=== PATIENT | female | born 1940 | race Caucasian/White ===

== ENCOUNTER → 2023-03-24 15:10 | Outpatient (CLI) | payer MEDICARE, SELFPAY ==
--- NOTE | 2023-03-24 15:26 | DI.RAD_ITS ---
Exam(s) XR CHEST 2V PA LATERAL EXAM: XR CHEST 2V PA LATERAL CLINICAL HISTORY: COUGH, R05.9 TECHNIQUE: 2D digital imaging was performed. COMPARISON: No exams were available for comparison FINDINGS: Lateral view limited by poor pulmonary inflation. HEART: Normal size. Aorta: Not dilated. PULMONARY VASCULATURE: Normal. LUNGS: Clear. PLEURAL SPACE: No pleural effusion or pneumothorax. BONE:Unremarkable for age. Soft tissues: Moderate size hiatal hernia. Eventration of the right diaphragm. IMPRESSION: Hiatal hernia. No acute abnormality. DATA REPOSITORY: RADIATION DOSE DELIVERED:
== END ==
PROVIDERS: Visit Provider Physician Assistant
DX: J44.9 Chronic obstructive pulmonary disease, unspecified (principal); R05.9 Cough, unspecified
CPT/HCPCS: 71046

== ENCOUNTER 2023-09-14 05:57 | Outpatient (CLI) | payer MEDICARE, SELFPAY ==
[2023-09-14 13:49] LABS: Abs Immature Grans 0.01 10^3/uL (0.0-0.06); Absolute Basophil Count 0.04 10^3/uL (0.0-0.2); Absolute Eosinophil Count 0.42 10^3/uL (0.0-0.7); Absolute Lymphocyte Count 1.47 10^3/uL (1.2-3.4); Absolute Monocyte Count 0.47 10^3/uL (0.1-0.8); Absolute Neutrophil Count 2.72 10^3/uL (1.2-6.7); Basophils % 0.8 %; Eosinophils % 8.2 %; HCT 41.2 % (36.0-46.0); HGB 13.3 g/dL (11.2-15.7); Immature Grans % 0.2 %; Lymphocytes % 28.7 %; MCH 32.6 pg (27.0-33.0); MCHC 32.3 % (32.0-36.0); MCV 101 fL (80-95); MPV 8.9 fL (8.0-11.0); Monocytes % 9.2 %; Neutrophils % 52.9 %; Platelet Count 247 10^3/uL (130-400); RBC 4.08 10^6/uL (3.93-5.22); RDW 12.3 % (11.7-14.6); WBC 5.13 10^3/uL (4.4-10.8)
[2023-09-14 14:00] LABS: Hemoglobin A1C 6.1 % (<5.7)
[2023-09-14 14:52] LABS: ALT 28 U/L (14-59); AST 20 U/L (15-37); Albumin 3.7 g/dL (3.4-5.0); Alkaline Phosphatase 48 U/L (46-116); Anion Gap 5.8 mmol/L (3-11); BUN 16 mg/dL (7-18); Bilirubin, Total 0.4 mg/dL (0.2-1.0); CO2 31.2 mmol/L (21.0-32.0); CREATININE 0.8 mg/dL (0.55-1.02); Calcium 9.4 mg/dL (8.5-10.1); Calculated LDL 180 mg/dL (<100); Chloride 103 mmol/L (98-107); Cholesterol 271 mg/dL (<200); Estimated GFR 72.61 (mL/min/1.73m2); Glucose 95 mg/dL (74-106); HDL Cholesterol 52 mg/dL (40-60); Potassium 3.8 mmol/L (3.5-5.1); Sodium 140 mmol/L (136-145); Triglyceride 197 mg/dL (<150)
== END 2023-09-14 05:58 | disposition home or self-care (01) ==
LOC: LBO 05:57
PROVIDERS: PCP Nurse Practitioner; Referring Provider Nurse Practitioner; Visit Provider Nurse Practitioner
DX: E78.2 Mixed hyperlipidemia (principal); R73.03 Prediabetes; I10 Essential (primary) hypertension
CPT/HCPCS: 36415; 80053; 80061; 83036; 85025

== ENCOUNTER 2024-01-26 15:11 | Emergency (ER) | payer MEDICARE, SELFPAY ==
[2024-01-26] VITALS (19 sets, daily range): BP systolic 82–116; BP diastolic 35–85; PULSE 74–97; RESP 20; TEMP 37.9; O2SAT 84–95
--- NOTE | 2024-01-26 15:15 | DI.RAD_ITS ---
Exam(s) XR CHEST 2V PA LATERAL EXAM: XR CHEST 2V PA LATERAL CLINICAL HISTORY: cough. TECHNIQUE: 2D digital imaging was performed. COMPARISON: CR XR CHEST 2V PA LATERAL from 03/24/2023 FINDINGS: 2 views: Mild cardiomegaly. There is a large retrocardiac hiatal hernia again noted. Tenting of the right hemidiaphragm is unchanged. No obvious infiltrates nor pleural effusions. No pulmonary edema. No fractures. No pneumothorax. IMPRESSION: Large retrocardiac hiatal hernia again noted. This measures approximately 10 cm wide. No obvious [place] pulmonary findings nor pleural effusions DATA REPOSITORY: RADIATION DOSE DELIVERED:
--- NOTE | 2024-01-26 15:25 | W.ED.GENAD ---
Discharge Plan Disposition Patient Disposition: Home Condition: Stable Discharge Details Clinical Impression: COVID Primary Care Provider: Lyndsay Mujica ED Provider: Emeka Torres Home Meds and New Rx's Prescriptions: New amoxicillin-pot clavulanate 875-125 mg tablet 1 tab PO BID Qty: 20 0RF Paxlovid 300 mg (150 mg x 2)-100 mg tablets,dose pack See Rx Instructions .ROUTE .COMPLEX Qty: 30 0RF Rx Instructions: take TWO 150 mg tablets of nirmatrelvir with ONE 100 mg tablet of ritonavir twice daily for 5 days Continued triamcinolone acetonide 0.5 % cream 1 applic topical BID Pataday Once Daily Relief 0.7 % drops 1 drp ophthalmic (eye) QAM fluticasone propionate [Flonase Allergy Relief] 50 mcg/actuation spray,suspension 1 spray intranasal DAILY Rx Instructions: administer into each nostril atenolol 50 mg tablet 50 mg PO DAILY Qty: 90 3RF lisinopril 10 mg tablet 10 mg PO DAILY Qty: 90 3RF montelukast 10 mg tablet 10 mg PO DAILY Qty: 90 3RF omeprazole 40 mg capsule,delayed release(DR/EC) 40 mg PO DAILY Qty: 90 3RF benzonatate 200 mg capsule 200 mg PO BID PRN (Reason: cough) Qty: 90 1RF gabapentin 300 mg capsule 300 mg PO QHS Qty: 90 3RF ezetimibe 10 mg tablet 10 mg PO DAILY Qty: 90 3RF Discharge Instructions Additional Instructions: You are positive for COVID For guidance on quarantinining follow the recommendations on CDC website Follow-up with your primary care provider as needed If you feel more ill or have new symptoms such as severe worsening shortness of breath return to the emergency department for reevaluation HPI General Mode of arrival: EMS. Date/Time Provider Initiated Documentation: 01/26/24 15:15. Limitations to Documentation: no limitations. Information obtained by: patient. History of Present Illness 83 year old F presents to the emergency department with the chief complaint of productive cough, described as moderate, Patient started experiencing this day(s) (3) and it has been constant. No relieving factors improve symptom(s), No exacerbating factors reported . Patient did receive the following treatments prior to arrival, none Related Data Home Medications ?Medication ?Instructions ?Recorded ?Confirmed atenolol 50 mg tablet 50 mg PO DAILY #90 tabs 09/01/23 01/26/24 benzonatate 200 mg capsule 200 mg PO BID PRN cough #90 caps 09/01/23 01/26/24 fluticasone propionate 50 1 spray intranasal DAILY 09/01/23 01/26/24 mcg/actuation nasal spray,suspension (Flonase Allergy Relief) gabapentin 300 mg capsule 300 mg PO QHS #90 caps 09/01/23 01/26/24 lisinopril 10 mg tablet 10 mg PO DAILY #90 tabs 09/01/23 01/26/24 montelukast 10 mg tablet 10 mg PO DAILY #90 tabs 09/01/23 01/26/24 olopatadine 0.7 % eye drops 1 drp ophthalmic (eye) QAM 09/01/23 01/26/24 (Pataday Once Daily Relief) omeprazole 40 mg capsule,delayed 40 mg PO DAILY #90 caps 09/01/23 01/26/24 release triamcinolone acetonide 0.5 % 1 applic topical BID 09/01/23 01/26/24 topical cream ezetimibe 10 mg tablet 10 mg PO DAILY #90 tabs 10/07/23 01/26/24 amoxicillin 875 mg-potassium 1 tab PO BID #20 tabs 01/26/24 clavulanate 125 mg tablet nirmatrelvir 300 mg (150 mg See Rx Instructions PO .COMPLEX 01/26/24 x2)-ritonavir 100 mg tablet,dose #30 dose pk pack (Paxlovid) Previous Rx's ?Medication ?Instructions ?Recorded atenolol 50 mg tablet 50 mg PO DAILY #90 tabs 09/01/23 benzonatate 200 mg capsule 200 mg PO BID PRN cough #90 caps 09/01/23 gabapentin 300 mg capsule 300 mg PO QHS #90 caps 09/01/23 lisinopril 10 mg tablet 10 mg PO DAILY #90 tabs 09/01/23 montelukast 10 mg tablet 10 mg PO DAILY #90 tabs 09/01/23 omeprazole 40 mg capsule,delayed 40 mg PO DAILY #90 caps 09/01/23 release ezetimibe 10 mg tablet 10 mg PO DAILY #90 tabs 10/07/23 amoxicillin 875 mg-potassium 1 tab PO BID #20 tabs 01/26/24 clavulanate 125 mg tablet nirmatrelvir 300 mg (150 mg See Rx Instructions PO .COMPLEX 01/26/24 x2)-ritonavir 100 mg tablet,dose #30 dose pk pack (Paxlovid) General Stated Complaint: RespSymp TRICIA: 3 Review of Systems All systems reviewed & are unremarkable except as noted in HPI and below Constitutional Constitutional: Reports chills, Reports fever(s) and Denies weakness Cardiovascular Cardiovascular: Denies chest pain and Denies dyspnea Respiratory Respiratory: Reports cough and Denies dyspnea Gastrointestinal Gastrointestinal: Denies abdominal pain, Denies nausea and Denies vomiting Musculoskeletal Musculoskeletal: Denies joint swelling Neurologic Neurologic: Denies weakness Exam Const General: no acute distress Orientation: alert HENWY Head: normal to inspection Ears: external ears normal General nose exam: external nose normal Mouth: moist mucous membranes Eyes General: appearance normal, both eyes and all related structures Neck Neck: normal visual inspection Resp Effort & Inspection: normal respiratory effort and able to speak in complete sentences Auscultation: no wheezes Cardio Jugular venous pressure: no JVD Rate: regular rate Skin General skin exam: no rashes or lesions noted Neuro General: patient alert and patient oriented x3 Extrem General: normal to inspection Psych Mental Status: mental status grossly normal Course Vital Signs Vital signs: Vital Signs Temperature 37.9 C H 01/26/24 15:12 Pulse 95 H 01/26/24 15:12 Respiratory Rate 20 01/26/24 15:12 Blood Pressure 114/85 01/26/24 15:12 Pulse Oximetry 92 01/26/24 15:12 Temperature 37.9 C H 01/26/24 15:15 Temperature Source Oral 01/26/24 15:15 Pulse 95 H 01/26/24 15:15 Respiratory Rate 20 01/26/24 15:15 Respiratory Effort Normal 01/26/24 15:15 Blood Pressure 114/85 01/26/24 15:15 Blood Pressure Position Sitting 01/26/24 15:15 Pulse Oximetry 92 01/26/24 15:15 Oxygen Delivery Method Room Air 01/26/24 15:15 Oxygen Flow Rate 0 01/26/24 15:12 Medical Decision Making 83-year-old female with a history of hypertension, hyperlipidemia who comes in with several days of cough and low-grade fevers. She says she is also been feeling generally weak. Denies any vomiting, abdominal pain, severe headaches or neck stiffness. She arrives hemodynamically stable with a temperature of 37.9. She has no wheezing on exam, does have some mild rhonchi at the bases on the right and left. No murmurs, no JVD, soft nontender abdomen. Given her cough and low-grade fevers concern for pneumonia versus COVID versus flu, will check CBC, CMP, procalcitonin and also chest x-ray and reassess. X-ray negative for acute findings, labs show leukopenia, indeterminate procalcitonin and she is COVID-positive. She is hemodynamically stable and not requiring oxygen. She does note that she has had also a week of sinus congestion consistent with sinusitis. Unclear if this is due to the COVID because her cough symptoms only started a few days ago. I will start her on Paxlovid given her age and also Augmentin for sinusitis, she is stable for discharge and will follow-up with her PCP as needed, return precautions given Differential Diagnosis Differential Diagnosis: Pneumonia, flu, COVID Lab Data Lab results reviewed: Yes I reviewed the patient's lab results. Quality:SDOH Health Related Social Needs: No Data to Display PFSH All Active Problems (Updated 01/26/24 @ 16:54 by Emeka Torres MD) COVID (Acute) Statin intolerance (Acute) Prediabetes (Acute) Mixed hyperlipidemia (Acute) Primary hypertension (Acute) Medical History (Updated 01/26/24 @ 16:54 by Emeka Torres MD) Gastroesophageal reflux disease without esophagitis Seasonal allergic rhinitis due to pollen Trigeminal neuralgia History of deviated nasal septum Endometritis Surgical History (Updated 06/18/23 @ 15:07 by Nahed Canchola) History of tonsillectomy History of appendectomy History of partial hysterectomy Family History (Updated 06/18/23 @ 15:03 by Nahed Canchola) Father Heart attack Daughter Depression Social History (Updated 06/18/23 @ 15:02 by Nahed Canchola) Smoking/Tobacco Use Status: Former Tobacco Use Second Hand Exposure: No Smoking risk assessment performed?: Yes Alcohol Intake: never Substance use type: prescription drug Counseling given: No Adopted: No Caregiver/Support person: No Foster care: No Household members: family Housing: house Number of Children: 2 number of grandchildren: 8 Communication Needs: None Education Level: high school Do you need help understanding health information?: Never current occupation: Retired Pets and animals: Yes (1) Pets and animals: dog(s) Sexually active: No Do you think of yourself as: straight/heterosexual Current gender identity: female What is your relationship status?: How often do you talk on the phone with friends or family?: three or more times per week How often do you get together with friends or relatives?: three or more times per week Do you belong to any clubs or organized social groups?: no Panel score (0-1 are the most socially isolated patients): 1 What type of physical activity do you participate in: walking Duration: 60-90 minutes/day Frequency: daily Chantelle/Restorationism: Christian Seatbelt use: always Helmet use: No Drive intox or ride w/intox 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
[2024-01-26 15:53] LABS: BE (Venous) -1 mmol/L (-2-3); HCO3 (Venous) 23 mmol/L (23-28); O2 Sat (Venous) 87 %; TCO2 (Venous) 21 mmol/L (24-29); pCO2 (Venous) 37 mmHg (41-51); pH (Venous) 7.41 (7.31-7.41); pO2 (Venous) 55 mmHg
[2024-01-26 16:00] LABS: Abs Immature Grans 0.02 10^3/uL (0.0-0.06); Absolute Basophil Count 0.02 10^3/uL (0.0-0.2); Absolute Lymphocyte Count 0.23 10^3/uL (1.2-3.4); Absolute Monocyte Count 0.13 10^3/uL (0.1-0.8); Absolute Neutrophil Count 2.58 10^3/uL (1.2-6.7); Basophils % 0.7 %; HCT 34.5 % (36.0-46.0); HGB 11.6 g/dL (11.2-15.7); Immature Grans % 0.7 %; Lymphocytes % 7.7 %; MCH 32.6 pg (27.0-33.0); MCHC 33.6 % (32.0-36.0); MCV 97 fL (80-95); MPV 9.3 fL (8.0-11.0); Monocytes % 4.4 %; Neutrophils % 86.5 %; Platelet Count 138 10^3/uL (130-400); RBC 3.56 10^6/uL (3.93-5.22); RDW 12.1 % (11.7-14.6); RDW-SD 43.8 fL; WBC 2.98 10^3/uL (4.4-10.8)
[2024-01-26 16:22] LABS: ALT 44 U/L (14-59); AST 62 U/L (15-37); Albumin 2.9 g/dL (3.4-5.0); Alkaline Phosphatase 56 U/L (46-116); Anion Gap 7.4 mmol/L (3-11); BUN 20 mg/dL (7-18); Bilirubin, Total 0.47 mg/dL (0.2-1.0); CO2 24.6 mmol/L (21.0-32.0); Calcium 8.3 mg/dL (8.5-10.1); Chloride 104 mmol/L (98-107); Estimated GFR 55.21 (mL/min/1.73m2); Glucose 127 mg/dL (74-106); Magnesium 1.8 mg/dL (1.8-2.4); Potassium 3.4 mmol/L (3.5-5.1); Sodium 136 mmol/L (136-145); Total Protein 6.6 g/dL (6.4-8.2)
[2024-01-26 16:37] LABS: Procalcitonin 0.7 ng/mL
[2024-01-26 16:38] LABS: Influenza A PCR Negative (Negative); Influenza B PCR Negative (Negative); RSV PCR Negative (Negative)
[2024-01-26 16:41] LABS: Source Nasopharynx
[2024-01-26 16:42] LABS: COVID-19 PCR Positive (Negative)
== END 2024-01-26 17:10 | disposition home or self-care (01) ==
PROVIDERS: Emergency Provider Emergency Medicine; PCP Nurse Practitioner
DX: U07.1 COVID-19 (principal); R50.9 Fever, unspecified; R05.1 Acute cough; R42 Dizziness and giddiness; Z11.52 Encounter for screening for COVID-19
CPT/HCPCS: 80053; 82805; 84145; 87637; 99283; 71046; 83735; 85025

== ENCOUNTER 2024-02-09 12:50 | Observation (INO) | payer MEDICARE, SELFPAY ==
[2024-02-09] VITALS (46 sets, daily range): BP systolic 90–127; BP diastolic 51–96; PULSE 81–122; RESP 14–34; TEMP 35.3–38; O2SAT 85–100
--- NOTE | 2024-02-09 13:30 | DI.RAD_ITS ---
Exam(s) XR CHEST 2V PA LATERAL EXAM: XR CHEST 2V PA LATERAL CLINICAL HISTORY: shortness of breath, covid, fever TECHNIQUE: 2D digital imaging was performed. Two views. COMPARISON: CR XR CHEST 2V PA LATERAL from 03/24/2023 CR XR CHEST 2V PA LATERAL from 01/26/2024 FINDINGS: Exam limited by poor pulmonary inflation and under penetration at the lung bases. HEART: Normal enlarged. Aorta: Not dilated. PULMONARY VASCULATURE: Normal. MEDIASTINUM: Unremarkable moderate size hiatal hernia again noted. LUNGS: Clear where visualized. PLEURAL SPACE: No pleural effusion or pneumothorax. BONE:Unremarkable for age. SOFT TISSUES: Unremarkable. IMPRESSION: No acute abnormality. DATA REPOSITORY: RADIATION DOSE DELIVERED:
--- NOTE | 2024-02-09 13:40 | ED.GENADUL_ITS ---
Discharge Plan Disposition Patient Disposition: Admit to [facility] Condition: Serious Discharge Details Clinical Impression: Respiratory failure, COVID-19 Admit Date/Time: 02/09/24 17:40 Admit Provider: Geo Aceves Attending Provider: Geo Aceves Primary Care Provider: Lyndsay Mujica ED Provider: Jarvis Pate Discharge Data Discharge Date/Time-TO BE ENTERED AT DEPARTURE: 02/09/24 19:00 HPI General Date/Time Provider Initiated Documentation: 02/09/24 13:28 . HPI Narrative: This 83-year-old female with recent diagnosis of COVID-19 7 days prior to this arrival, hypertension, GERD, hyperlipidemia presents with report of weakness, nausea, 2 episodes of vomiting and feeling generally unwell. Patient states she actually was feeling better until last evening when she started to feel very tired this morning she awoke and was quite weak with high subjective fever. She states she is also having persistent and worsening cough with shortness of breath. States she took Paxlovid and was prescribed an antibiotic although did not take this medication secondary to diarrhea associated. 1 reported day of taking Augmentin and discontinued it last Thursday. Denies any falls or injuries. Denies any headache. Related Data Home Medications ?Medication ?Instructions ?Recorded ?Confirmed atenolol 50 mg tablet 50 mg PO DAILY #90 tabs 09/01/23 02/09/24 benzonatate 200 mg capsule 200 mg PO BID PRN cough #90 caps 09/01/23 02/09/24 fluticasone propionate 50 1 spray intranasal DAILY 09/01/23 02/09/24 mcg/actuation nasal spray,suspension (Flonase Allergy Relief) gabapentin 300 mg capsule 300 mg PO QHS #90 caps 09/01/23 02/09/24 lisinopril 10 mg tablet 10 mg PO DAILY #90 tabs 09/01/23 02/09/24 montelukast 10 mg tablet 10 mg PO DAILY #90 tabs 09/01/23 02/09/24 olopatadine 0.7 % eye drops 1 drp ophthalmic (eye) QAM 09/01/23 02/09/24 (Pataday Once Daily Relief) omeprazole 40 mg capsule,delayed 40 mg PO DAILY #90 caps 09/01/23 02/09/24 release triamcinolone acetonide 0.5 % 1 applic topical BID 09/01/23 02/09/24 topical cream ezetimibe 10 mg tablet 10 mg PO DAILY #90 tabs 10/07/23 02/09/24 Previous Rx's ?Medication ?Instructions ?Recorded atenolol 50 mg tablet 50 mg PO DAILY #90 tabs 09/01/23 benzonatate 200 mg capsule 200 mg PO BID PRN cough #90 caps 09/01/23 gabapentin 300 mg capsule 300 mg PO QHS #90 caps 09/01/23 lisinopril 10 mg tablet 10 mg PO DAILY #90 tabs 09/01/23 montelukast 10 mg tablet 10 mg PO DAILY #90 tabs 09/01/23 omeprazole 40 mg capsule,delayed 40 mg PO DAILY #90 caps 09/01/23 release ezetimibe 10 mg tablet 10 mg PO DAILY #90 tabs 10/07/23 Allergies Allergy/AdvReac Type Severity Reaction Status Date / Time amoxicillin (From Augmentin) AdvReac Diarrhea Verified 02/09/24 13:01 clavulanic acid (From AdvReac Diarrhea Verified 02/09/24 13:01 Augmentin) General Stated Complaint: GenMedical TRICIA: 3 Exam Narrative Exam Narrative: Frail appearing 83-year-old female who appears ill, pupils equal round reactive to light and accommodation, oropharynx patent, uvula midline, lungs are mildly diminished without wheezes, cardiac rate rhythm regular, diffuse abdominal tenderness without rebound or guarding, no CVA tenderness alert and oriented x 3, no peripheral edema, no meningismus no rashes or lesions Course Vital Signs Vital signs: Vital Signs Temperature 38.0 C H 02/09/24 12:53 Pulse 122 H 02/09/24 12:53 Respiratory Rate 18 02/09/24 12:53 Blood Pressure 96/64 L 02/09/24 12:53 Pulse Oximetry 94 02/09/24 12:53 Temperature 38.0 C H 02/09/24 12:53 Temperature Source Oral 02/09/24 12:53 Pulse 122 H 02/09/24 12:53 Respiratory Rate 18 02/09/24 12:53 Blood Pressure 96/64 L 02/09/24 12:53 Pulse Oximetry 94 02/09/24 12:53 Oxygen Delivery Method Room Air 02/09/24 12:53 Oxygen Flow Rate 0 02/09/24 12:53 Lab/Test Results Lab/Test Results: 02/09/24 13:36 Blood Blood Culture - Pending 02/09/24 13:36 Blood Blood Culture - Pending Medical Decision Making 83-year-old female, ill in appearance, COVID-19 positive day 7, blood pressure low normal. Chest x-ray without evidence of obvious infiltrate. Will order CT chest abdomen and pelvis secondary to fever abdominal tenderness and weakness. Pending CT chest abdomen and pelvis at this time. Urinalysis pending. Received ceftriaxone and doxycycline empirically for pneumonia as patient's complaints are predominantly respiratory. She was noted to be hypoxic at 88%, placed on 2 L of oxygen 91 to 92%, able to speak in complete sentences.. Received 1 L of fluid, will give an additional 500 cc. Patient agreeable to admission at this time. Will transition care pending CT abdomen pelvis, discussed the case with Dr. Mcdermott, recommends adding remdesivir. Quality:[facility] Health Related Social Needs: No Data to Display Critical Care Time Critical Care Time Attestation: 35 minutes of critical care time in the presence of sepsis requiring IV fluid resuscitation, shock with hypotension, 90/50, requiring IV antibiotics, COVID-19 with possible bacterial pneumonia superimposed, telemetry monitoring, diagnostic lab interpretation review, diagnostic image interpretation and review admission admission to the hospital, consultation with admitting hospitalist [facility] All Active Problems (Updated 02/09/24 @ 18:28 by Geo Aceves) Fever (Acute) Hyponatremia (Acute) DVT prophylaxis (Acute) Hypomagnesemia (Acute) Acute kidney injury due to COVID-19 (Acute) Acute hypoxic respiratory failure (Acute) COVID (Acute) Statin intolerance (Acute) Prediabetes (Acute) Mixed hyperlipidemia (Acute) Primary hypertension (Acute) Medical History (Updated 02/09/24 @ 18:28 by Geo Aceves) Gastroesophageal reflux disease without esophagitis Seasonal allergic rhinitis due to pollen Trigeminal neuralgia History of deviated nasal septum Endometritis Surgical History (Updated 02/09/24 @ 18:28 by Geo Aceves) S/P sinus surgery History of tonsillectomy History of appendectomy History of partial hysterectomy Family History (Updated 06/18/23 @ 15:03 by Nahed Canchola) Father Heart attack Daughter Depression Social History (Updated 02/09/24 @ 18:00 by Geo Aceves) Smoking/Tobacco Use Status: Former Tobacco Use Second Hand Exposure: No Smoking risk assessment performed?: Yes Alcohol Intake: never Substance use type: does not use and prescription drug Counseling given: No Adopted: No Caregiver/Support person: No Foster care: No Household members: family Housing: house Number of Children: 2 number of grandchildren: 8 Communication Needs: None Education Level: high school Do you need help understanding health information?: Never current occupation: Retired Pets and animals: Yes (1) Pets and animals: dog(s) Sexually active: No Do you think of yourself as: straight/heterosexual Current gender identity: female What is your relationship status?: How often do you talk on the phone with friends or family?: three or more times per week How often do you get together with friends or relatives?: three or more times per week Do you belong to any clubs or organized social groups?: no Panel score (0-1 are the most socially isolated patients): 1 What type of physical activity do you participate in: walking Duration: 60-90 minutes/day Frequency: daily Chantelle/Orthodox: Jainism Seatbelt use: always Helmet use: No Drive intox or ride w/intox new car driver: No Additional Social history: Lives with daughter Kaye, Kaye's Nirali, and their family. Moved from [facility] after of of 66 years in 2022 Sign Out Sign Out Data: Sign Out Comment: covid 19, sepsis, respiratory failure, pending ct Last updated by Nela Mckeon PA at 02/09/24 15:57
[2024-02-09] MEDS: Dexamethasone 4 MG/ML VIAL 6 MG IVP (14:18)
[2024-02-09] MEDS: Normal Saline 500 ML IV (14:18)
[2024-02-09] MEDS: ACETAMINOPHEN 500 MG/50 ML BAG 200 MG IVPB (14:18)
[2024-02-09 14:22] LABS: Lactate 1.1 mmol/L (0.6-1.4)
[2024-02-09 14:24] LABS: HCT 34.6 % (36.0-46.0); HGB 11.6 g/dL (11.2-15.7); MCH 31.4 pg (27.0-33.0); MCHC 33.5 % (32.0-36.0); MCV 94 fL (80-95); MPV 9.9 fL (8.0-11.0); Platelet Count 132 10^3/uL (130-400); RDW-SD 44.9 fL; WBC 4.67 10^3/uL (4.4-10.8)
[2024-02-09 14:43] LABS: Absolute Lymphocyte Count 0.56 10^3/uL (1.2-3.4); Absolute Monocyte Count 0.37 10^3/uL (0.1-0.8); Absolute Neutrophil Count 3.74 10^3/uL (1.2-6.7); Atypical Lymphocytes % 1 %
[2024-02-09 14:44] LABS: Diff Comment Manual Differential; RBC Morphology Normal; Troponin I 18 ng/L (<or=51)
[2024-02-09 14:46] LABS: ALT 27 U/L (14-59); AST 33 U/L (15-37); Albumin 2.6 g/dL (3.4-5.0); Alkaline Phosphatase 92 U/L (46-116); Anion Gap 11.4 mmol/L (3-11); BUN 25 mg/dL (7-18); Bilirubin, Total 1.05 mg/dL (0.2-1.0); CO2 24.6 mmol/L (21.0-32.0); CREATININE 1.1 mg/dL (0.55-1.02); Calcium 8.9 mg/dL (8.5-10.1); Chloride 97 mmol/L (98-107); Estimated GFR 49.24 (mL/min/1.73m2); Glucose 125 mg/dL (74-106); Magnesium 1.7 mg/dL (1.8-2.4); Potassium 3.9 mmol/L (3.5-5.1); Sodium 133 mmol/L (136-145); Total Protein 7.7 g/dL (6.4-8.2)
[2024-02-09 14:57] LABS: Procalcitonin 0.13 ng/mL
[2024-02-09] MEDS: cefTRIAXone 2 GM/50 ML BAG IVPB (15:30)
[2024-02-09] MEDS: DOXYCYCLINE 100 MG in Normal Saline 100 ML IVPB ×2 (15:30→23:33)
--- NOTE | 2024-02-09 15:46 | HPE_ITS ---
Date of service: 02/09/24 Time of Service: 17:47 Assessment and Plan Assessment and plan (1) Acute hypoxic respiratory failure: Status: Acute Assessment and plan: Mild hypoxia. Unclear etiology. I'm not sure we can blame COVID 16 days out. She is not immune suppressed. Her worsening was over a week after she finished the paxlovid. No PE or pneumonia on CT. No clear signs of CHF, small pericardial effusion not likely significant, but with slightly soft BPs will consider echocardiogram in AM. Troponins okay, get EKG as this was not done. She has a smoking history and some slight wheeziness with cough, will continue steroids and try bronchodilators. Should have flu/RSV swabs (2) COVID: Status: Acute Assessment and plan: She was given remdesavir x 1, but there is no clear indication this far out to continue this treatment. Will treat supportively. She should not be infectious. This could be post-covid with pericardial effusion (3) Fever: Status: Acute Assessment and plan: mild on presentation. See above regarding work up thus far. Need to repeat viral swabs. No pneumonia, UTI. COVID should not be causing fevers at this point. May be another virus. Will cover for tick bourne illness and send panel Lyme and anaplasmosis are endemic and risk extends into January. (4) Primary hypertension: Status: Acute Assessment and plan: BPs have been soft, will hold home lisinopril and atenolol. (5) Acute kidney injury due to COVID-19: Status: Acute Assessment and plan: Mild ALIZE with bump of 0.3 from baseline of 0.8. Likely due to poor oral intake in setting of recent COVID. She appears mildly dehydrated so will infuse plasmalyte overnight (6) Hypomagnesemia: Status: Acute Assessment and plan: replace and follow (7) DVT prophylaxis: Status: Acute Assessment and plan: higher risk with covid, lmwh (8) Hyponatremia: Status: Acute Assessment and plan: Mild, likely a/w hypovolemic state, follow after IV and po fluids. History of Present Illness History of Present Illness Chief Complaint: fatigue Narrative: 83 yo F with history of HTN who was recently diagnosed with COVID-19 on 01/26/24 who is presenting with 2 days of worsening cough and fatigue. She first got sick about 16 days ago, 1-2 days before she was seen in the ED for cough and general weakness and low grade fever. At that point she was diagnosed with COVID-19 and treated with Paxlovid. Her chest x-ray was negative. She also had a week or so of sinus symtpoms, which is a chronic issue for her, and amoxicillin/clavulonate was prescribed as well. She did improve with the paxlovid. She had diarrhea on the amox/clav so this was discontinued after a few days. 2 days ago, she had a return of very similar symptoms. She has had a return of her cough and general weakness. She hasn't had a fever, but has felt chills. She has felt nausea, though she had not complained of abdominal pain. She has been eating less. Review of Systems All systems reviewed & are unremarkable except as noted in HPI and below Constitutional Constitutional: Reports chills, Reports fever(s), Denies headache(s), Reports lethargy, Denies weight gain and Denies weight loss Eyes Eyes: Denies change in vision ENT Ears, Nose, Mouth, and Throat: Reports otalgia (gets ear infections at times), Denies headache(s), Denies odynophagia and Denies sore throat Cardiovascular Cardiovascular: Denies chest pain, Denies edema and Denies palpitations Respiratory Respiratory: Reports cough, Denies hemoptysis and Denies excessive phlegm production Gastrointestinal Gastrointestinal: Denies melena, Denies hematochezia, Reports nausea and Denies odynophagia Comments: diarrhea with amox/clav resolved Genitourinary Genitourinary: Denies hematuria, Denies dysuria and Denies urinary urgency Musculoskeletal Musculoskeletal: Denies arthralgias and Denies joint swelling Integumentary/Breasts Skin/Breast: Denies new lesions and Denies rash Neurologic Neurologic: Denies headache(s) Endocrine Endocrine: Denies palpitations PFSH All Active Problems (Updated 02/09/24 @ 18:28 by Geo Aceves) Fever (Acute) Hyponatremia (Acute) DVT prophylaxis (Acute) Hypomagnesemia (Acute) Acute kidney injury due to COVID-19 (Acute) Acute hypoxic respiratory failure (Acute) COVID (Acute) Statin intolerance (Acute) Prediabetes (Acute) Mixed hyperlipidemia (Acute) Primary hypertension (Acute) Medical History (Updated 02/09/24 @ 18:28 by Geo Aceves) Gastroesophageal reflux disease without esophagitis Seasonal allergic rhinitis due to pollen Trigeminal neuralgia History of deviated nasal septum Endometritis Surgical History (Updated 02/09/24 @ 18:28 by Geo Aceves) S/P sinus surgery History of tonsillectomy History of appendectomy History of partial hysterectomy Family History (Updated 06/18/23 @ 15:03 by Nahed Canchola) Father Heart attack Daughter Depression Social History (Updated 02/09/24 @ 18:00 by Geo Aceves) Smoking/Tobacco Use Status: Former Tobacco Use Second Hand Exposure: No Smoking risk assessment performed?: Yes Alcohol Intake: never Substance use type: does not use and prescription drug Counseling given: No Adopted: No Caregiver/Support person: No Foster care: No Household members: family Housing: house Number of Children: 2 number of grandchildren: 8 Communication Needs: None Education Level: high school Do you need help understanding health information?: Never current occupation: Retired Pets and animals: Yes (1) Pets and animals: dog(s) Sexually active: No Do you think of yourself as: straight/heterosexual Current gender identity: female What is your relationship status?: How often do you talk on the phone with friends or family?: three or more times per week How often do you get together with friends or relatives?: three or more times per week Do you belong to any clubs or organized social groups?: no Panel score (0-1 are the most socially isolated patients): 1 What type of physical activity do you participate in: walking Duration: 60-90 minutes/day Frequency: daily Chantelle/Baptist: Congregational Seatbelt use: always Helmet use: No 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 Moved from [facility] after of of 66 years in 2022 Meds Allergies and Home Medications Allergies Allergy/AdvReac Type Severity Reaction Status Date / Time amoxicillin (From Augmentin) AdvReac Diarrhea Verified 02/09/24 13:01 clavulanic acid (From AdvReac Diarrhea Verified 02/09/24 13:01 Augmentin) Home Medications ?Medication ?Instructions ?Recorded ?Confirmed ?Type atenolol 50 mg tablet 50 mg PO DAILY #90 tabs 09/01/23 02/09/24 Rx benzonatate 200 mg capsule 200 mg PO BID PRN cough #90 caps 09/01/23 02/09/24 Rx fluticasone propionate 50 1 spray intranasal DAILY 09/01/23 02/09/24 History mcg/actuation nasal spray,suspension (Flonase Allergy Relief) gabapentin 300 mg capsule 300 mg PO QHS #90 caps 09/01/23 02/09/24 Rx lisinopril 10 mg tablet 10 mg PO DAILY #90 tabs 09/01/23 02/09/24 Rx montelukast 10 mg tablet 10 mg PO DAILY #90 tabs 09/01/23 02/09/24 Rx olopatadine 0.7 % eye drops 1 drp ophthalmic (eye) QAM 09/01/23 02/09/24 History (Pataday Once Daily Relief) omeprazole 40 mg capsule,delayed 40 mg PO DAILY #90 caps 09/01/23 02/09/24 Rx release triamcinolone acetonide 0.5 % 1 applic topical BID 09/01/23 02/09/24 History topical cream ezetimibe 10 mg tablet 10 mg PO DAILY #90 tabs 10/07/23 02/09/24 Rx Exam Narrative Exam Narrative: GEN: Somnolent but arouses with questions and exam, oriented and cooperative. She answers direct questions but then goes back to sleep. Daughter gives most of the history. HEENT: Head atraumatic. Conjunctiva clear, no icterus. TMs clear stan. PEERL, EOMI. no rhinorrhea. MMM, OP benign. Neck is supple with no masses or lymphadenopathy, trachea midline LUNGS: CTAB other than some expiratory wheezing after coughing with deep breaths, normal effort CV: RRR with no murmurs, gallops, or rubs. ABD: active bowel sounds, soft, mild epigastric tenderness but no rebound and nondistended. No masses. EXT: no cyanosis, clubbing, or edema MSK: No joint redness or swelling NEURO: CN 2-12 grossly intact. Normal movement of 4 extremities. Normal speech and coordination. No tremor SKIN: Clammy. No rashes or open wounds. PSYCH: depressed mood and affect Results Imaging Chest x-ray: report reviewed (No acute abnormality. ) and image reviewed Imaging Studies: CT C/A/P 1. 1.2 cm left lingular nodule. For solitary solid noncalcified nodules larger than 8 mm in diameter, consider 3-month follow-up, work-up with combined positron emission tomography (PET) and CT (PET/CT), tissue sampling, or a combination thereof; any one of these options may be appropriate depending on size, morphology, comorbidity, and other factors. (grade 1A; strong recommendation, high-quality evidence). (Luci et al., 2017) 2. Diffuse concentric thickening of the mid and distal esophagus. Differential considerations include infectious or inflammatory esophagitis or neoplasm. Further evaluation with endoscopy should be considered. 3. Small pericardial effusion. 4. Enlarged mediastinal lymph nodes. 5. No acute abdominal or pelvic process. Labs 02/09/24 14:15 02/09/24 14:15 Labs: Laboratory Results - last 24 hr 02/09/24 14:15 WBC 4.67 RBC 3.70 L Hgb 11.6 Hct 34.6 L MCV 94 MCH 31.4 MCHC 33.5 RDW 13.0 Plt Count 132 MPV 9.9 Immature Gran % See Differential Neutrophils % 80.0 Lymphocytes % 11.0 Atypical Lymphs % 1 Monocytes % 8.0 Eosinophils % 0.0 Basophils % 0.0 Nucleated RBC % 0.0 Absolute Neutrophils 3.74 Absolute Lymphocytes 0.56 L Absolute Monocytes 0.37 Absolute Eosinophils 0.00 Absolute Basophils 0.00 RBC Morphology Normal VBG Lactate 1.1 Sodium 133 L Potassium 3.9 Chloride 97 L Carbon Dioxide 24.6 Anion Gap 11.4 H BUN 25 H Creatinine 1.1 H Est GFR (CKD-EPI 2020) 49.24 Glucose 125 H Calcium 8.9 Magnesium 1.7 L Total Bilirubin 1.05 H AST 33 ALT 27 Alkaline Phosphatase 92 Troponin I 18 Total Protein 7.7 Albumin 2.6 L Procalcitonin 0.13 Last Vital Signs Temp 38.0 C H 02/09/24 12:53 Pulse 117 H 02/09/24 13:32 Resp 17 02/09/24 13:40 BP 109/55 L 02/09/24 13:32 Pulse Ox 91 L 02/09/24 13:40 Time Spent Time spent with Patient: 55-74 minutes Time was spent: preparing to see the patient(eg.review tests), obtaining and/or reviewing separately otained hiistory, ordering medications,tests, procedures, referring, communicating with other health career agent, indepentently interpreting results, counseling the patient and care coordination
[2024-02-09] MEDS: Omnipaque 350 MG/ML 100 ML BTL IJ (15:49)
[2024-02-09] MEDS: Normal Saline - Diluent 50 ML VIAL IJ (15:51)
--- NOTE | 2024-02-09 16:07 | DI.CT_ITS ---
Exam(s) CT CHEST/ABD/PEL W EXAM: CT CHEST/ABD/PEL W CLINICAL HISTORY: fever, hypoxia, abdominal pain TECHNIQUE: Imaging Protocol: Axial computed tomography images with coronal and sagittal reformatted images were created and reviewed. Lung Computer Aided Detection (CAD) was utilized. CONTRAST MATERIAL: Intravenous: Omnipaque 350 contrast volume:100 mL Oral: No COMPARISON: CR XR CHEST 2V PA LATERAL from 02/09/2024 FINDINGS: The examination is limited due to patient motion artifact. CHEST: Tracheobronchial tree: Patent where visualized. No evidence of bronchiectasis. Pulmonary parenchyma: There is a 1.0 x 1.2 cm nodule in the left lingula (series 11, image 53). No a rchitectural distortion. There is dependent atelectasis. There are calcified granuloma present. Visualized thyroid gland: Unremarkable. Mediastinum and Elizabeth: There are enlarged mediastinal lymph nodes. The largest measures 1.6 x 1.9 cm. There is diffuse concentric thickening of the mid to distal esophagus. There is a paraesophageal h ernia. Pleura: No effusion or pneumothorax. Heart: Mild cardiomegaly. Mild coronary artery calcification is present. There is a pericardial eff usion with maximal thickness of 1.4 cm. Pulmonary arteries: Due to the bolus timing, the peripheral pulmonary arteries are not adequately opa cified for evaluation of pulmonary emboli. No large central pulmonary embolism is present. Aorta: Thoracic aorta non-dilated. No evidence of dissection. Atherosclerotic calcification is prese nt. Lymph nodes: There is no axillary or supraclavicular adenopathy. Soft tissues: Unremarkable. Bones:Within normal limits for the patient's age. ABDOMEN: Liver: Normal density. No measurable mass. Portal, Superior Mesenteric, and Splenic Veins: Unremarkable. Gallbladder and Biliary Tract: No radiodense calculus or dilation. Pancreas: Normal density, no abnormal calcifications or inflammatory process. Spleen: Normal. Adrenals: No masses seen. Kidneys: Normal size, contour and axis. No radiodense stones or obstructive uropathy. No suspicious r enal masses are seen. Hypodense lesions are seen in the right kidney. They are too small for furthe r characterization. No follow-up is recommended. Abdominal Aorta: Abdominal portion non-dilated. Atherosclerotic calcification is present. Bowel: Anastomotic clips are seen in the descending colon. Evidence of bowel obstruction or bowel wa ll thickening. No evidence of appendicitis. Peritoneal Cavity: No ascites, collection or mesenteric inflammatory response. No free air. Lymph Nodes: Within normal limits. Bones: Within normal limits for the patient's age. Soft Tissues: There is a midline small fat supraumbilical anterior abdominal wall hernia. PELVIS: Bladder: Symmetric distention, no gross wall thickening. Reproductive Organs: The uterus is not visualized. Lymph Nodes: Within normal limits. Bones: Within normal limits. IMPRESSION: 1. 1.2 cm left lingular nodule. For solitary solid noncalcified nodules larger than 8 mm in diameter, consider 3-month follow-up, wor k-up with combined positron emission tomography (PET) and CT (PET/CT), tissue sampling, or a combinat ion thereof; any one of these options may be appropriate depending on size, morphology, comorbidity, and other factors. (grade 1A; strong recommendation, high-quality evidence). (Luci et al., 2017) 2. Diffuse concentric thickening of the mid and distal esophagus. Differential considerations includ e infectious or inflammatory esophagitis or neoplasm. Further evaluation with endoscopy should be co nsidered. 3. Small pericardial effusion. 4. Enlarged mediastinal lymph nodes. 5. No acute abdominal or pelvic process. RADIATION DOSE DELIVERED: 344.7mGy.cm Total DLP DATA REPOSITORY: All CT scans at this facility are submitted to the National Radiology Data Registry (NRDR) Dose Index Registry (DIR) with the [employer] (A[employer]). RADIATION OPTIMIZATION: All CT scans at this facility use at least one of these dose optimization te chniques: automated exposure control; mA and/or kV adjustment per patient size (includes targeted exa ms where dose is matched to clinical indication); or iterative reconstruction.
[2024-02-09 16:11] LABS: Troponin I 19 ng/L (<or=51)
[2024-02-09 16:11] LABS: Bilirubin Small (Negative); Blood Small (Negative); Clarity Clear (Clear); Glucose Negative (Negative); Ketones Trace mg/dL (Negative); Leukocyte Esterase Negative (Negative); Nitrite Negative (Negative); Specific Gravity 1.025 (1.005-1.025); pH 5.5 (5-8)
--- NOTE | 2024-02-09 16:32 | ED.PROG_ITS ---
Date of service: 02/09/24 Time of Service: 16:32 Medical Decision Making Patient seen in signout from Nela Mckeon PA-C, please see her complete note, patient is already admitted to medicine for hypoxic respiratory failure secondary to COVID-[address]. [address] chest/ABD/pelvis results. Nonsurgical CT results, small pericardial effusion, patient admitted for hypoxic respiratory failure secondary to COVID by Dr. Aceves at 1655 Medical Records Medical records reviewed: Yes I reviewed the patient's medical records. Imaging Data Radiologic Study: Attestation: I personally reviewed and interpreted this imaging study as follows: Imaging: CT Scan Radiologist's impression: EXAM: CT CHEST/ABD/PEL W CLINICAL HISTORY: fever, hypoxia, abdominal pain TECHNIQUE: Imaging Protocol: Axial computed tomography images with coronal and sagittal reformatted images were created and reviewed. Lung Computer Aided Detection (CAD) was utilized. CONTRAST MATERIAL: Intravenous: Omnipaque 350 contrast volume:100 mL Oral: No COMPARISON: CR XR CHEST 2V PA LATERAL from 02/09/2024 FINDINGS: The examination is limited due to patient motion artifact. CHEST: Tracheobronchial tree: Patent where visualized. No evidence of bronchiectasis. Pulmonary parenchyma: There is a 1.0 x 1.2 cm nodule in the left lingula (series 11, image 53). No architectural distortion. There is dependent atelectasis. There are calcified granuloma present. Visualized thyroid gland: Unremarkable. Mediastinum and Elizabeth: There are enlarged mediastinal lymph nodes. The largest measures 1.6 x 1.9 cm. There is diffuse concentric thickening of the mid to distal esophagus. There is a paraesophageal hernia. Pleura: No effusion or pneumothorax. Heart: Mild cardiomegaly. Mild coronary artery calcification is present. There is a pericardial effusion with maximal thickness of 1.4 cm. Pulmonary arteries: Due to the bolus timing, the peripheral pulmonary arteries are not adequately opacified for evaluation of pulmonary emboli. No large central pulmonary embolism is present. Aorta: Thoracic aorta non-dilated. No evidence of dissection. Atherosclerotic calcification is present. Lymph nodes: There is no axillary or supraclavicular adenopathy. Soft tissues: Unremarkable. Bones:Within normal limits for the patient's age. ABDOMEN: Liver: Normal density. No measurable mass. Portal, Superior Mesenteric, and Splenic Veins: Unremarkable. Gallbladder and Biliary Tract: No radiodense calculus or dilation. Pancreas: Normal density, no abnormal calcifications or inflammatory process. Spleen: Normal. Adrenals: No masses seen. Kidneys: Normal size, contour and axis. No radiodense stones or obstructive uropathy. No suspicious renal masses are seen. Hypodense lesions are seen in the right kidney. They are too small for further characterization. No follow- up is recommended. Abdominal Aorta: Abdominal portion non-dilated. Atherosclerotic calcification is present. Bowel: Anastomotic clips are seen in the descending colon. Evidence of bowel obstruction or bowel wall thickening. No evidence of appendicitis. Peritoneal Cavity: No ascites, collection or mesenteric inflammatory response. No free air. Lymph Nodes: Within normal limits. Bones: Within normal limits for the patient's age. Soft Tissues: There is a midline small fat supraumbilical anterior abdominal wall hernia. PELVIS: Bladder: Symmetric distention, no gross wall thickening. Reproductive Organs: The uterus is not visualized. Lymph Nodes: Within normal limits. Bones: Within normal limits. IMPRESSION: 1. 1.2 cm left lingular nodule. For solitary solid noncalcified nodules larger than 8 mm in diameter, consider 3-month follow-up, work-up with combined positron emission tomography (PET) and CT (PET/CT), tissue sampling, or a combination thereof; any one of these options may be appropriate depending on size, morphology, comorbidity, and other factors. (grade 1A; strong recommendation, high-quality evidence). (Luci et al., 2017) 2. Diffuse concentric thickening of the mid and distal esophagus. Differential considerations include infectious or inflammatory esophagitis or neoplasm. Further evaluation with endoscopy should be considered. 3. Small pericardial effusion. 4. Enlarged mediastinal lymph nodes. 5. No acute abdominal or pelvic process. Lab Data Lab results reviewed: Yes I reviewed the patient's lab results. Labs: 02/09/24 15:25 Blood Blood Culture - Pending 02/09/24 14:15 Blood Blood Culture - Pending Laboratory Tests Range/Units 02/09/24 02/09/24 02/09/24 14:15 15:25 15:47 WBC (4.4-10.8) 10^3/uL 4.67 RBC (3.93-5.22) 10^6/uL 3.70 L Hgb (11.2-15.7) g/dL 11.6 Hct (36.0-46.0) % 34.6 L MCV (80-95) fL 94 MCH (27.0-33.0) pg 31.4 MCHC (32.0-36.0) % 33.5 RDW (11.7-14.6) % 13.0 Plt Count (130-400) 10^3/uL 132 MPV (8.0-11.0) fL 9.9 Immature Gran % See Differential Neutrophils % % 80.0 Lymphocytes % % 11.0 Atypical Lymphs % % 1 Monocytes % % 8.0 Eosinophils % % 0.0 Basophils % % 0.0 Nucleated RBC % (0.0-0.3) % 0.0 Absolute Neutrophils (1.2-6.7) 10^3/uL 3.74 Absolute Lymphocytes (1.2-3.4) 10^3/uL 0.56 L Absolute Monocytes (0.1-0.8) 10^3/uL 0.37 Absolute Eosinophils (0.0-0.7) 10^3/uL 0.00 Absolute Basophils (0.0-0.2) 10^3/uL 0.00 RBC Morphology Normal VBG Lactate (0.6-1.4) mmol/L 1.1 Sodium (136-145) mmol/L 133 L Potassium (3.5-5.1) mmol/L 3.9 Chloride (98-107) mmol/L 97 L Carbon Dioxide (21.0-32.0) mmol/L 24.6 Anion Gap (3-11) mmol/L 11.4 H BUN (7-18) mg/dL 25 H Creatinine (0.55-1.02) mg/dL 1.1 H Est GFR (CKD-EPI 2020) (mL/min/1.73m2) 49.24 Glucose (74-106) mg/dL 125 H Calcium (8.5-10.1) mg/dL 8.9 Magnesium (1.8-2.4) mg/dL 1.7 L Total Bilirubin (0.2-1.0) mg/dL 1.05 H AST (15-37) U/L 33 ALT (14-59) U/L 27 Alkaline Phosphatase (46-116) U/L 92 Troponin I (<or=51) ng/L 18 19 Total Protein (6.4-8.2) g/dL 7.7 Albumin (3.4-5.0) g/dL 2.6 L Procalcitonin ng/mL 0.13 Urine Color (Yellow) Yellow Urine Clarity (Clear) Clear Urine pH (5-8) 5.5 Ur Specific [place] (1.005-1.025) 1.025 Urine Protein (Neg-Trace) mg/dL >=300 H Urine Ketones (Negative) mg/dL Trace H Urine Blood (Negative) Small H Urine Nitrite (Negative) Negative Urine Bilirubin (Negative) Small H Urine Urobilinogen (Up to 0.2) mg/dL 2.0 H Ur Leukocyte Esterase (Negative) Negative Urine Glucose (Negative) mg/dL Negative Quality:SDOH Health Related Social Needs: No Data to Display Sign Out Sign Out Data: Sign Out Comment: covid 19, sepsis, respiratory failure, pending ct Last updated by Nela Mckeon PA at 02/09/24 15:57 Discharge Plan Disposition Patient Disposition: Admit to [facility] Condition: Serious Discharge Details Clinical Impression: Respiratory failure, COVID-19 Primary Care Provider: Lyndsay Mujica ED Provider: Jarvis Pate Home Meds and New Rx's Prescriptions: No Action triamcinolone acetonide 0.5 % cream 1 applic topical BID Pataday Once Daily Relief 0.7 % drops 1 drp ophthalmic (eye) QAM fluticasone propionate [Flonase Allergy Relief] 50 mcg/actuation spray,suspension 1 spray intranasal DAILY Rx Instructions: administer into each nostril atenolol 50 mg tablet 50 mg PO DAILY Qty: 90 3RF lisinopril 10 mg tablet 10 mg PO DAILY Qty: 90 3RF montelukast 10 mg tablet 10 mg PO DAILY Qty: 90 3RF omeprazole 40 mg capsule,delayed release(DR/EC) 40 mg PO DAILY Qty: 90 3RF benzonatate 200 mg capsule 200 mg PO BID PRN (Reason: cough) Qty: 90 1RF gabapentin 300 mg capsule 300 mg PO QHS Qty: 90 3RF ezetimibe 10 mg tablet 10 mg PO DAILY Qty: 90 3RF
[2024-02-09 16:33] LABS: Bacteria Moderate HPF (Negative)
[2024-02-09 16:36] LABS: Epithelial Cells Rare HPF (Negative); RBC 0-2 HPF (0-2)
[2024-02-09 16:37] LABS: Mucus Moderate (Negative)
[2024-02-09 16:38] LABS: C & S Indicated? No
--- NOTE | 2024-02-09 18:00 | RT.EKG_ITS ---
APPROVED REPORT Exam: Resting ECG Reason for Exam: weakness Patient Location: E HR:89 bpm ECG Measurements Heart Rate 89 AXIS VT 181 P [id number] QRSd 98 QRS -2 QT 377 T 13 QTc 459 Conclusion Normal Electrocardiogram
[2024-02-09] MEDS: Ondansetron 4 MG/2 ML VIAL IVP (18:06)
[2024-02-09 18:13] LABS: Troponin I 15 ng/L (<or=51)
[2024-02-09 19:16] LABS: COVID-19 PCR Negative (Negative); Influenza A PCR Negative (Negative); Influenza B PCR Negative (Negative); RSV PCR Negative (Negative)
[2024-02-09 19:20] LABS: Source Nasopharynx
[2024-02-09] MEDS: Enoxaparin 40 MG/0.4 ML SYR SC (20:43)
[2024-02-09] MEDS: ELECTROLYTE-R SOLUTION 1,000 ML 125 ML IV (20:43)
[2024-02-09] MEDS: Gabapentin 300 MG CAP PO (20:45)
[2024-02-10] VITALS (8 sets, daily range): BP systolic 113–144; BP diastolic 55–91; PULSE 71–107; RESP 15–18; TEMP 35.7–36.8; O2SAT 92–98
--- NOTE | 2024-02-10 02:43 | W.PC.ACHO ---
Registration Status: Primary Language: Preferred Language: ED Information & Data Chief Complaint GenMedical 02/09/24 13:40 Triage Note Relatives brought patient 02/09/24 12:53 with history of just getting over covid but since this morning they noticed that she is weak. Patient was diagnosed with covid last Thursday was on plaxcovid. patient state she feels lousy and having pain in the back of her neck Medical / Surgical History (Last Updated 06/25/23 @ 16:32 by Carolyn Augustine RN) Gastroesophageal reflux disease without esophagitis Seasonal allergic rhinitis due to pollen Trigeminal neuralgia History of deviated nasal septum Endometritis (Last Updated 02/09/24 @ 18:28 by Geo Aceves) S/P sinus surgery History of tonsillectomy History of appendectomy History of partial hysterectomy Most Recent Vital Signs Temperature 35.7 C L 02/09/24 23:39 Temperature Source Temporal Artery Scan 02/09/24 23:39 Pulse 81 02/09/24 23:39 Pulse Rhythm Regular 02/09/24 20:07 Pulse 87 02/09/24 17:46 Respiratory Rate 16 02/09/24 23:39 Respiratory Effort Normal, Short of Breath 02/09/24 20:07 Respiratory Depth Normal 02/09/24 20:07 Respiratory Pattern Normal 02/09/24 20:07 Blood Pressure 111/58 L 02/09/24 23:39 Blood Pressure Mean 72 02/09/24 18:46 Pulse Oximetry 98 02/10/24 02:00 Oxygen Delivery Method Nasal Cannula 02/10/24 02:00 Oxygen Flow Rate 1 02/10/24 02:00 Fraction of Inspired Oxygen (FIO2) 100 02/09/24 15:30 Pain Level 0 02/09/24 23:39 Comment MAP = 76 02/09/24 23:39 Comment 2 lpm O2 02/09/24 16:21 Allergies amoxicillin (From Augmentin) Adverse Reaction (Verified 02/09/24 13:01) Diarrhea clavulanic acid (From Augmentin) Adverse Reaction (Verified 02/09/24 13:01) Diarrhea Active Medications Generic Name Dose Route Start Last Admin Trade Name Freq PRN Reason Stop Dose Admin Enoxaparin Sodium 40 mg 02/09/24 18:00 02/09/24 20:43 Enoxaparin 40 Mg/0.4 Ml Syr SC 40 mg Q24H EDGAR Administration Gabapentin 300 mg 02/09/24 20:00 02/09/24 20:45 Gabapentin 300 Mg Cap PO 300 mg HS EDGAR Administration Doxycycline Hyclate 100 mg/ 100 mls @ 100 mls/hr 02/09/24 22:00 02/09/24 23:33 Sodium Chloride IVPB 100 mls/hr Q12H EDGAR Administration Ondansetron HCl 4 mg 02/09/24 17:55 02/09/24 18:06 Ondansetron 4 Mg/2 Ml Vial IVP 4 mg Q8H PRN PRN Administration Nausea IV IV Catheter Type [] Peripheral IV IV Catheter Type [Right [place] Antecubital] IV Catheter Type [Left Peripheral IV Antecubital] IV Catheter Gauge [] 18 IV Catheter Gauge [Right 18 Antecubital] IV Catheter Gauge [Left 18 Antecubital] Diagnostics 02/10/24 02/09/24 02/09/24 Range/Units 05:35 18:35 17:35 WBC Pending (4.4-10.8) 10^3/uL RBC Pending (3.93-5.22) 10^6/uL Hgb Pending (11.2-15.7) g/dL Hct Pending (36.0-46.0) % MCV Pending (80-95) fL MCH Pending (27.0-33.0) pg MCHC Pending (32.0-36.0) % RDW Pending (11.7-14.6) % Plt Count Pending (130-400) 10^3/uL MPV Pending (8.0-11.0) fL Immature Gran % Pending Neutrophils % Pending % Lymphocytes % Pending % Atypical Lymphs % % Monocytes % Pending % Eosinophils % Pending % Basophils % Pending % Nucleated RBC % (0.0-0.3) % Absolute Neutrophils Pending (1.2-6.7) 10^3/uL Absolute Lymphocytes Pending (1.2-3.4) 10^3/uL Absolute Monocytes Pending (0.1-0.8) 10^3/uL Absolute Eosinophils Pending (0.0-0.7) 10^3/uL Absolute Basophils Pending (0.0-0.2) 10^3/uL RBC Morphology VBG Lactate (0.6-1.4) mmol/L Sodium Pending (136-145) mmol/L Potassium Pending (3.5-5.1) mmol/L Chloride Pending (98-107) mmol/L Carbon Dioxide Pending (21.0-32.0) mmol/L Anion Gap Pending (3-11) mmol/L BUN Pending (7-18) mg/dL Creatinine Pending (0.55-1.02) mg/dL Est GFR (CKD-EPI 2020) Pending (mL/min/1.73m2) Glucose Pending (74-106) mg/dL Calcium Pending (8.5-10.1) mg/dL Magnesium Pending (1.8-2.4) mg/dL Total Bilirubin (0.2-1.0) mg/dL AST (15-37) U/L ALT (14-59) U/L Alkaline Phosphatase (46-116) U/L Troponin I 15 (<or=51) ng/L Total Protein (6.4-8.2) g/dL Albumin (3.4-5.0) g/dL Procalcitonin ng/mL Urine Color (Yellow) Urine Clarity (Clear) Urine pH (5-8) Ur Specific [place] (1.005-1.025) Urine Protein (Neg-Trace) mg/dL Urine Ketones (Negative) mg/dL Urine Blood (Negative) Urine Nitrite (Negative) Urine Bilirubin (Negative) Urine Urobilinogen (Up to 0.2) mg/dL Ur Leukocyte Esterase (Negative) Urine RBC (0-2) HPF Urine WBC (0-5) HPF Ur Epithelial Cells (Negative) HPF Urine Crystals Urine Bacteria (Negative) HPF Urine Casts (Negative) LPF Urine Mucus (Negative) Ur Culture Indicated? Urine Glucose (Negative) mg/dL B. divergens/MO-1 PCR Babesia duncani (PCR) Babesia microti DNA PCR Lyme Disease Antibody COVID-19 Source Nasopharynx SARS-CoV-2 (PCR) Negative (Negative) E.chaffeensis DNA (PCR) E.ewingii/canis DNA PCR E.muris eauclairensis (PCR) Influenza Type A (PCR) Negative (Negative) Influenza Type B (PCR) Negative (Negative) RSV (PCR) Negative (Negative) A. phagocytophilum (PCR) Blood B. miyamotoi (PCR) 02/09/24 02/09/24 02/09/24 Range/Units 15:47 15:25 14:15 WBC 4.67 (4.4-10.8) 10^3/uL RBC 3.70 L (3.93-5.22) 10^6/uL Hgb 11.6 (11.2-15.7) g/dL Hct 34.6 L (36.0-46.0) % MCV 94 (80-95) fL MCH 31.4 (27.0-33.0) pg MCHC 33.5 (32.0-36.0) % RDW 13.0 (11.7-14.6) % Plt Count 132 (130-400) 10^3/uL MPV 9.9 (8.0-11.0) fL Immature Gran % See Differential Neutrophils % 80.0 % Lymphocytes % 11.0 % Atypical Lymphs % 1 % Monocytes % 8.0 % Eosinophils % 0.0 % Basophils % 0.0 % Nucleated RBC % 0.0 (0.0-0.3) % Absolute Neutrophils 3.74 (1.2-6.7) 10^3/uL Absolute Lymphocytes 0.56 L (1.2-3.4) 10^3/uL Absolute Monocytes 0.37 (0.1-0.8) 10^3/uL Absolute Eosinophils 0.00 (0.0-0.7) 10^3/uL Absolute Basophils 0.00 (0.0-0.2) 10^3/uL RBC Morphology Normal VBG Lactate 1.1 (0.6-1.4) mmol/L Sodium 133 L (136-145) mmol/L Potassium 3.9 (3.5-5.1) mmol/L Chloride 97 L (98-107) mmol/L Carbon Dioxide 24.6 (21.0-32.0) mmol/L Anion Gap 11.4 H (3-11) mmol/L BUN 25 H (7-18) mg/dL Creatinine 1.1 H (0.55-1.02) mg/dL Est GFR (CKD-EPI 2020) 49.24 (mL/min/1.73m2) Glucose 125 H (74-106) mg/dL Calcium 8.9 (8.5-10.1) mg/dL Magnesium 1.7 L (1.8-2.4) mg/dL Total Bilirubin 1.05 H (0.2-1.0) mg/dL AST 33 (15-37) U/L ALT 27 (14-59) U/L Alkaline Phosphatase 92 (46-116) U/L Troponin I 19 18 (<or=51) ng/L Total Protein 7.7 (6.4-8.2) g/dL Albumin 2.6 L (3.4-5.0) g/dL Procalcitonin 0.13 ng/mL Urine Color Yellow (Yellow) Urine Clarity Clear (Clear) Urine pH 5.5 (5-8) Ur Specific [place] 1.025 (1.005-1.025) Urine Protein >=300 H (Neg-Trace) mg/dL Urine Ketones Trace H (Negative) mg/dL Urine Blood Small H (Negative) Urine Nitrite Negative (Negative) Urine Bilirubin Small H (Negative) Urine Urobilinogen 2.0 H (Up to 0.2) mg/dL Ur Leukocyte Esterase Negative (Negative) Urine RBC 0-2 (0-2) HPF Urine WBC 5-10 (0-5) HPF Ur Epithelial Cells Rare (Negative) HPF Urine Crystals Not Applicable Urine Bacteria Moderate (Negative) HPF Urine Casts 5-10 Coarse Granular (Negative) LPF Urine Mucus Moderate (Negative) Ur Culture Indicated? No Urine Glucose Negative (Negative) mg/dL B. divergens/MO-1 PCR Pending Babesia duncani (PCR) Pending Babesia microti DNA PCR Pending Lyme Disease Antibody Pending COVID-19 Source SARS-CoV-2 (PCR) (Negative) E.chaffeensis DNA (PCR) Pending E.ewingii/canis DNA PCR Pending E.muris eauclairensis (PCR) Pending Influenza Type A (PCR) (Negative) Influenza Type B (PCR) (Negative) RSV (PCR) (Negative) A. phagocytophilum (PCR) Pending Blood B. miyamotoi (PCR) Pending 02/09/24 15:25 Blood Culture - Pending Blood 02/09/24 14:15 Blood Culture - Pending Blood Intake and Output - 24 Hour Total 02/09/24 12:50 thru 02/10/24 01:45 Intake Total 1000 Output Total 600 Balance 400 Weight 62.46 kg Intake: IV 800 Oral 200 Output: Urine 600 Other: Urine Color Yellow Urine Appearance Clear Urine Odor Normal Comment charted on wrong pt Falls Risk Assessment History of Falls No History 02/09/24 20:07 Contributing Factors No Factors 02/09/24 20:07 Ambulatory Aids Independent 02/09/24 20:07 Tubes/Lines W/no contributing factors 02/09/24 20:07 Gait Evaluation W/any additional score 02/09/24 20:07 Cognition Cognitive impairment 02/09/24 14:00 Fall Total Score 30 02/09/24 20:07 Level of Risk Moderate Risk 02/09/24 20:07 Problems (Last Updated 06/25/23 @ 16:32 by Carolyn Augustine RN) Fever (Acute) Hyponatremia (Acute) DVT prophylaxis (Acute) Hypomagnesemia (Acute) Acute kidney injury due to COVID-19 (Acute) Acute hypoxic respiratory failure (Acute) COVID (Acute) Primary hypertension (Acute) v v v v v v v v v Sending and/or Receiving Nurses: Please use comment section below to note any information pertinent to the patient hand-off not included above. Information / Comments: Pt still in ER, COVID + was taking plaxlovid coming up on 2 L O2 NC, AAOX3, straight cath was done for UA, received 1 L of fluids and doxycylcine in ER. Report received from: JONEL Miller and JONEL West (preceptor)
[2024-02-10 07:33] LABS: HCT 34.4 % (36.0-46.0); HGB 11.3 g/dL (11.2-15.7); MCH 31.4 pg (27.0-33.0); MCHC 32.8 % (32.0-36.0); MCV 96 fL (80-95); MPV 10.7 fL (8.0-11.0); Platelet Count 124 10^3/uL (130-400); RDW 13.1 % (11.7-14.6); RDW-SD 46.3 fL
[2024-02-10 07:44] LABS: Anion Gap 9.9 mmol/L (3-11); BUN 27 mg/dL (7-18); CO2 26.1 mmol/L (21.0-32.0); CREATININE 0.9 mg/dL (0.55-1.02); Calcium 9.3 mg/dL (8.5-10.1); Chloride 103 mmol/L (98-107); Estimated GFR 62.65 (mL/min/1.73m2); Glucose 128 mg/dL (74-106); Potassium 3.9 mmol/L (3.5-5.1); Sodium 139 mmol/L (136-145)
[2024-02-10 08:28] LABS: Absolute Lymphocyte Count 1.34 10^3/uL (1.2-3.4); Absolute Monocyte Count 0.32 10^3/uL (0.1-0.8); Absolute Neutrophil Count 1.54 10^3/uL (1.2-6.7); Atypical Lymphocytes % 6 %
[2024-02-10 08:29] LABS: Diff Comment Manual Differential
[2024-02-10] MEDS: Ezetimibe 10 MG TAB PO (08:43)
[2024-02-10] MEDS: Montelukast 10 MG TAB PO (08:44)
[2024-02-10] MEDS: Omeprazole 20 MG CAPCR 40 MG PO (08:44)
[2024-02-10] MEDS: predniSONE 20 MG TAB 40 MG PO (08:44)
--- NOTE | 2024-02-10 10:00 | IN_ITS ---
PT Notes Visit Reasons: Hypoxia, ALIZE, Covid Physical Therapy Inpatient Initial Evaluation Date: 02/10/2024 Referring Doctor: Geo Aceves MD PT Orders: PT CONSULT: Safety Consult for D/C Precautions: Fall. Standard. Activity as tolerated. Patient Profile/Admitting Diagnosis: Maureen is an 83-year-old female admitted to the ED for weakness, nausea, 2 episodes of vomiting, generalized unwellness, fatigue, fever, and worsening cough along with shortness of breath. Patient is admitted for management of acute hypoxic respiratory failure, recent COVID, fever, hypertension, ALIZE, hypomagnesemia, and hyponatremia. PMHX: All Active Problems (Updated 02/09/24 @ 18:28 by Geo Aceves) Fever (Acute) Hyponatremia (Acute) DVT prophylaxis (Acute) Hypomagnesemia (Acute) Acute kidney injury due to COVID-19 (Acute) Acute hypoxic respiratory failure (Acute) COVID (Acute) Statin intolerance (Acute) Prediabetes (Acute) Mixed hyperlipidemia (Acute) Primary hypertension (Acute) Medical History (Updated 02/09/24 @ 18:28 by Geo Aceves) Gastroesophageal reflux disease without esophagitis Seasonal allergic rhinitis due to pollen Trigeminal neuralgia History of deviated nasal septum Endometritis Surgical History (Updated 02/09/24 @ 18:28 by Geo Aceves) S/P sinus surgery History of tonsillectomy History of appendectomy History of partial hysterectomy Social History/Home Situation: Lives with daughter in a private home with 4 steps to enter with rails on both sides. Independent with all aspects of ADLs prior to surgery Equipment Owned/DME: None Subjective: Still fatigued but better than day of admission. Daughter stays with her but works during the day. She has been able to manage on her own alone until onset of COVID 2 weeks ago. Objective: General Observation: Telemetry monitoring in place. Mental Status: Alert and oriented as to person, place, time, and purpose. Able to pay attention, focus, and respond appropriately. Pain: None reported Vital Signs: Closely monitored by nursing staff ROM: Right Upper Extremity: Shoulder Flexion WFL. Shoulder abduction WFL. Elbow flexion WFL. Wrist flexion WFL. Functional opening and closing of hand WFL. Left Upper Extremity: Shoulder Flexion WFL. Shoulder abduction WFL. Elbow flexion WFL. Wrist flexion WFL. Functional opening and closing of hand WFL. Right Lower Extremity: Hip flexion WFL. Hip abduction WFL. Knee flexion WFL. Ankle dorsiflexion WFL. Ankle plantarflexion WFL. Left Lower Extremity: Hip flexion WFL. Hip abduction WFL. Knee flexion WFL. Ankle dorsiflexion WFL. Ankle plantarflexion WFL. Strength: Right Upper Extremity: Shoulder flexors 4-/5. Shoulder abductors 4-/5. Elbow flexors 4-/5. Elbow extensors 4-/5. Architect Manager strong. Left Upper Extremity: Shoulder flexors 4-/5. Shoulder abductors 4-/5. Elbow flexors 4-/5. Elbow extensors 4-/5. Architect Manager strong. Right Lower Extremity: Hip flexors 4-/5. Hip abductors 4-/5. Knee flexors 4/5. Knee extensors 4-/5. Ankle dorsiflexors 4-/5. Ankle plantarflexors 4-/5. Left Lower Extremity: Hip flexors 4-/5. Hip abductors 4-/5. Knee flexors 4/5. Knee extensors 4-/5. Ankle dorsiflexors 4-/5. Ankle plantarflexors 4-/5. Bed Mobility/Transfers: Minimal cueing provided for use of B hands as needed for support, movement sequence, AD management, and posture to reduce fall risk and minimize pain report Rolling stand by assist Supine to sit stand by assist Sit to supine stand by assist Sit to stand minimal assist with FWW Stand to sit minimal assist with FWW Bed to toilet seat minimal assist with FWW Bedside commode to bed minimal assist with FWW Bed to reclining chair minimal assist with FWW Reclining chair to bed minimal assist with FWW Gait: Facilitate safe and correct performance of level surface discussed walker contact-guard assist and wheelchair follow. Minimal shortness of breath resolved with rest. Rebekah decreased. Reported minimal fatigue after activity. Denied headache and chest pain. Mildly lightheaded. No loss of balance. Balance: Static Sitting: Normal Dynamic Sitting: Normal Static Standing: Good Dynamic Standing: Fair Special Tests: Mobility Limitations Standardized Measure [place] AM-PAC 6 clicks Basic Mobility Inpatient Short Form: Raw Score: 18 CMS Score: 47% deficit Informed Consent/Education: Patient was instructed in purpose of PT consult and plan of care. Agreeable to proceed with established PT POC to achieve personal goals. Assessment: Patient presents with clinical signs and symptoms consistent with current/admitting diagnoses that have resulted to mobility limitations, gait instability, generalized weakness, and overall ADL decline as demonstrated by the following impairment level findings: 1. Decreased strength to B UE/LE major muscle groups 2. Impaired sitting/standing balance 3. Impaired activity tolerance 4. Shortness of breath Impairments are contributing to the following functional limitations: 1. Decline in bed mobility skills 2. Decline in transfer skills 3. Difficulty with ambulation without assistive device and physical assistance 4. Increased completion time for mobility ADL performance 5. Increased risk for falls 6. Difficulty with managing steps alone safely Patient is assessed as a 37188 moderate complexity based on the following: History: 83-year-old female with past medical history as indicated above Examination: Demonstrable impairment in strength, balance, and mobility level with underlying impairments and functional limitations as exhibited above as well as deficit score of 47% utilizing the [facility] Mobility Inpatient Short Form Presentation: Evolving Decision Makin moderate complexity Goals: Goals X1 week 1. Supine-Sit independent 2. Sit-Supine independent 3. Sit-Stand independent 4. Stand-Sit independent with FWW 5. Bed-Chair independent with FWW 6. Chair-Bed independent with FWW 7. Independent gait on level surface with use of FWW for at least 300 feet without report of pain nor dyspnea 8. Independent stair negotiation while holding onto B rails for at least 5 steps without report of pain nor dyspnea 9. Independent with home exercise program 10. Good static and dynamic standing balance/tolerance Plan of Care/Treatment Plan: 1-2x/day, 7 days/week x 1 week. Plan of care has been reviewed with the HOSPICE LIAISON providing the service under Physical Therapy direction. Initiate Physical Therapy intervention for pain management as needed, strengthening, bed mobility, transfers, gait, stairs, balance training, and use of assistive device. DISCHARGE RECOMMENDATIONS: [] Home with no services [] [X] Home with services. Patient will benefit from home health PT services in order to progress mobility level using least restrictive assistive ambulatory device, assess home safety, identify additional equipment needs, and establish a functional maintenance program that will increase ability of patient to remain at home. [] Home with outpatient PT [] [] SNF for continued rehabilitation [] [] Care Home Care [] [] SNF versus LTC based on ability to participate and progress [] TREATMENT CODE/TIME: 98063 x 29 minutes for 1 unit (10:00?10:29). Thank you for the opportunity to participate in the care of this patient. January Rodriguez PT, DPT, CLT [facility] [place], [place]
[2024-02-10] MEDS: Fluticasone NASAL SPRAY 16 GM BTL NS (10:08)
--- NOTE | 2024-02-10 11:06 | W.PM.PROGNOT ---
Date of Service Date of service: 02/10/24 Time of Service: 11:06 Assessment and Plan Assessment and plan (1) Acute hypoxic respiratory failure: Status: Acute Assessment and plan: Mild hypoxia. Unclear etiology. Now off of oxygen. No clear signs of CHF, small pericardial effusion on CT but echocardiogram reasuring, just mild diastolic dysfunction. Troponins and EKG reassuring. She has a smoking history and some slight wheeziness with cough, possible COPD, will continue steroids and bronchodilators. (2) COVID: Status: Acute Assessment and plan: She was given remdesavir x 1, but > 2 weeks out from diagnosis and negative on repeat swab. No indication for further treatment (3) Fever: Status: Acute Assessment and plan: mild on presentation. Negative repeat viral swabs. No pneumonia, UTI. May be another virus. Will cover for tick bourne illness and send panel Lyme and anaplasmosis are endemic and risk extends into January. -continue doxycycline (4) Primary hypertension: Status: Acute Assessment and plan: Holding home lisinopril and atenolol, BP and pulse coming up, resume. Splitting atenolol to BID for more even coverage. (5) Acute kidney injury due to COVID-19: Status: Acute Assessment and plan: Mild ALIZE with bump of 0.3 from baseline of 0.8. Likely due to poor oral intake in setting of illness. Improved today, continue oral fluids (6) Hypomagnesemia: Status: Acute Assessment and plan: replaced (7) Hyponatremia: Status: Acute Assessment and plan: Mild, likely a/w hypovolemic state, normalized with hydration (8) DVT prophylaxis: Status: Acute Assessment and plan: higher risk with recent covid, lmwh Subjective Subjective Patient reports: feels better and voiding w/o difficulty; denies diarrhea, vomiting, shortness of breath or fever Interval history since last seen: she is feeling better. Still feeling a little tired and sweaty, not quite steady on her feet, but hasn't had a fever again. She did eat some this morning. Exam Narrative Exam Narrative: GEN: Alert and oriented, NAD LUNGS: CTAB, normal effort CV: RRR with no murmurs, gallops, or rubs. ABD: active bowel sounds, soft, non-tender, nondistended. No masses. EXT: no cyanosis, clubbing, or edema Objective Last Vital Signs Temp 36.8 C 02/10/24 07:41 Pulse 95 H 02/10/24 07:41 Resp 18 02/10/24 07:41 BP 123/55 L 02/10/24 07:41 Pulse Ox 93 02/10/24 07:41 Laboratory Results - last 24 hr 02/09/24 02/09/24 02/09/24 14:15 15:25 15:47 WBC 4.67 RBC 3.70 L Hgb 11.6 Hct 34.6 L MCV 94 MCH 31.4 MCHC 33.5 RDW 13.0 Plt Count 132 MPV 9.9 Immature Gran % See Differential Neutrophils % 80.0 Lymphocytes % 11.0 Atypical Lymphs % 1 Monocytes % 8.0 Eosinophils % 0.0 Basophils % 0.0 Nucleated RBC % 0.0 Absolute Neutrophils 3.74 Absolute Lymphocytes 0.56 L Absolute Monocytes 0.37 Absolute Eosinophils 0.00 Absolute Basophils 0.00 RBC Morphology Normal VBG Lactate 1.1 Sodium 133 L Potassium 3.9 Chloride 97 L Carbon Dioxide 24.6 Anion Gap 11.4 H BUN 25 H Creatinine 1.1 H Est GFR (CKD-EPI 2020) 49.24 Glucose 125 H Calcium 8.9 Magnesium 1.7 L Total Bilirubin 1.05 H AST 33 ALT 27 Alkaline Phosphatase 92 Troponin I 18 19 Total Protein 7.7 Albumin 2.6 L Procalcitonin 0.13 Urine Color Yellow Urine Clarity Clear Urine pH 5.5 Ur Specific [place] 1.025 Urine Protein >=300 H Urine Ketones Trace H Urine Blood Small H Urine Nitrite Negative Urine Bilirubin Small H Urine Urobilinogen 2.0 H Ur Leukocyte Esterase Negative Urine RBC 0-2 Urine WBC 5-10 Ur Epithelial Cells Rare Urine Crystals Not Applicable Urine Bacteria Moderate Urine Casts 5-10 Coarse Granular Urine Mucus Moderate Ur Culture Indicated? No Urine Glucose Negative COVID-19 Source SARS-CoV-2 (PCR) Influenza Type A (PCR) Influenza Type B (PCR) RSV (PCR) 02/09/24 02/09/24 02/10/24 17:35 18:35 07:00 WBC 3.20 L RBC 3.60 L Hgb 11.3 Hct 34.4 L MCV 96 H MCH 31.4 MCHC 32.8 RDW 13.1 Plt Count 124 L MPV 10.7 Immature Gran % See Differential Neutrophils % 48.0 Lymphocytes % 36.0 Atypical Lymphs % 6 Monocytes % 10.0 Eosinophils % 0.0 Basophils % 0.0 Nucleated RBC % 0.0 Absolute Neutrophils 1.54 Absolute Lymphocytes 1.34 Absolute Monocytes 0.32 Absolute Eosinophils 0.00 Absolute Basophils 0.00 RBC Morphology VBG Lactate Sodium 139 Potassium 3.9 Chloride 103 Carbon Dioxide 26.1 Anion Gap 9.9 BUN 27 H Creatinine 0.9 Est GFR (CKD-EPI 2020) 62.65 Glucose 128 H Calcium 9.3 Magnesium 2.0 Total Bilirubin AST ALT Alkaline Phosphatase Troponin I 15 Total Protein Albumin Procalcitonin Urine Color Urine Clarity Urine pH Ur Specific [place] Urine Protein Urine Ketones Urine Blood Urine Nitrite Urine Bilirubin Urine Urobilinogen Ur Leukocyte Esterase Urine RBC Urine WBC Ur Epithelial Cells Urine Crystals Urine Bacteria Urine Casts Urine Mucus Ur Culture Indicated? Urine Glucose COVID-19 Source Nasopharynx SARS-CoV-2 (PCR) Negative Influenza Type A (PCR) Negative Influenza Type B (PCR) Negative RSV (PCR) Negative Time Spent with Patient Time Spent with Patient: 35-49 minutes Time was spent: preparing to see the patient(eg.review tests), obtaining and/or reviewing separately otained hiistory, ordering medications,tests, procedures, referring, communicating with other health career discovery teacher, indepentently interpreting results, counseling the patient and care coordination
[2024-02-10] MEDS: DOXYCYCLINE 100 MG in Normal Saline 100 ML IVPB ×2 (11:08→21:53)
--- NOTE | 2024-02-10 11:49 | PHA.REVIEW2 ---
Pharmacy Admission Review Admission Clinical Review Admission Pharmacy Review: Fever (Acute) Hyponatremia (Acute) DVT prophylaxis (Acute) Hypomagnesemia (Acute) Acute kidney injury due to COVID-19 (Acute) Acute hypoxic respiratory failure (Acute) COVID (Acute) Primary hypertension (Acute) amoxicillin (From Augmentin) Adverse Reaction (Verified 02/09/24 13:01) Diarrhea clavulanic acid (From Augmentin) Adverse Reaction (Verified 02/09/24 13:01) Diarrhea Resuscitation Status Full Code Height 5 ft 3 in Weight 62.46 kg Pharmacy Admission Review Renal Dosing Renal Dosing: BUN 27 mg/dL (7-18) H 02/10/24 07:00 Creatinine 0.9 mg/dL (0.55-1.02) 02/10/24 07:00 Medications needing adjustments: Reviewed (CrCl 40.56 mL/min, BUN increased from 25 and SCr decreased from 1.1) List of meds needing interventions: Current medications are okay Anticoagulation Anticoagulation: Hgb 11.3 g/dL (11.2-15.7) 02/10/24 07:00 Hct 34.4 % (36.0-46.0) L 02/10/24 07:00 Plt Count 124 10^3/uL (130-400) L 02/10/24 07:00 Creatinine 0.9 mg/dL (0.55-1.02) 02/10/24 07:00 DVT Prophylaxis: Reviewed Medications: Enoxaparin (40mg daily) Relevant Labs Relevant Labs: Sodium 139 mmol/L (136-145) 02/10/24 07:00 Potassium 3.9 mmol/L (3.5-5.1) 02/10/24 07:00 Chloride 103 mmol/L (98-107) 02/10/24 07:00 Magnesium 2.0 mg/dL (1.8-2.4) 02/10/24 07:00 Electrolytes, C-Reactive P, ESR: Reviewed Cardiac Review Cardiac Review: Troponin I 15 ng/L (<or=51) 02/09/24 17:35 BP, HR, EF%: Reviewed (BP 123/55 and HR 95) QTc Review QTc: Reviewed (EKG report pending from 02/09/24) IV to PO Switch IV Medications: Intervened (doxycycline. Intially had order for IV ondansetron, asked provider during morning meeting if this could be changed to PO. Provider changed order.) Home Meds Home Med List reviewed: Intervened Relevent Home Meds Not ordered & why?: atenolol (on hold per H+P), lisinopril (on hold per H+P) and triamcinolone cream Changed [place] to patients own order. Asked nurse to see if this could be brought in for patient, waiting to hear back. Current Meds Current Medication Order Review: Intervened Comments: Added IV admission order set Pharmacy Antibiotic Review Relevant Labs: Relevant Labs 02/09/24 14:15 Procalcitonin 0.13 WBC 3.20 10^3/uL (4.4-10.8) L 02/10/24 07:00 Procalcitonin 0.13 ng/mL 02/09/24 14:15 Temperature 36.8 C Temperature 35.7 C Comments: Patient is on doxycycline, day 2. Blood cultures and tick panel are pending. Patient initially given remdesivir but has since tested negative for COVID.
--- NOTE | 2024-02-10 13:28 | INITIAL_ITS ---
Date of service: 02/10/24 Time of Service: 13:28 Care Management Initial Assmt Initial Assessment Reason for Hospitalization: hypxia, fever, viral illness Functional Status/Living Situation Patient Presentation: Maureen was admitted to observation status yesterday, due to increasing SOB and mild hypoxia. She tested positive for Covid 16days ago, and it is questioned if she has another type of viral illness. Maureen was lying in bed, with HOB at 45 degrees, conversing with her family (daughter, grandson and his ), when CM met with her. She looked well. She was very pleasant and quick witted. Maureen stated she is feeling better than she was. She did have a bout of coughing while talking, but seemed to recover well. Maureen relocated from [place] in March after her . She no longer had family in the area, and her daughter, Kaye, wanted her nearby. Maureen now lives with Kaye and Kaye's , Nirali. PT recommended PT. CM discussed with Maureen and Kaye. Neither feel that she needs that service at this time. Town of Residence: [facility] Resides with: Child (Lives with daughter Kaye and Kaye's , Nirali. Also a beloved dog named Xuan Ivey.) Significant Other/Family: Local (Daughter as above, grandson and his family are nearby. Another son lives in [place].) Natural Supports: Family is a huge support. Employment Status: Retired Instrumental Activities of Daily Living (ADLs): Independent Activities/Hobbies/SocialSupport: Maureen still walks almost every day. She loves to help her neighbors, especially bringing them food when they are sick. Maureen loves to cook for people and she loves being around her family. Medications Medication Management: No Issues/Barriers identified Advance Directives Advance Directives: Do you have an Advance Directive: Y 03/24/23 15:15 AD On File at [facility]: N 03/24/23 15:15 Date Asked 01/26/24 01/26/24 15:16 AD Date Reviewed COLST On File at [facility] COLST Date Scanned Code Status Resuscitation Status Full Code Insurance Coverage/Financial Issues Insurance: / Medicare Advantage Financial Issues: denies Care Team Visit Care Team Role Provider Type Lyndsay Mujica NP Primary Care Provider NURSE PRACTITIONER InPatient Luis Daniel Chirinos Other Providers OTHER DIPAK Hernández Emergency Provider [employer]IC[employer]ANS SHORE WORKING SUPERVISOR Geo Aceves Admit Provider [facility] STAFF PHYSICIAN Attending Provider Discharge Potential Discharge Needs: PCP F/U Appt Anticipated Barriers to Discharge: None Identified Patient/Family Education Needs: Review discharge instructions, discuss Ask Me Three Transportation: Private vehicle (with family) Plan: Anticipate that Maureen will be discharged home with no new services. She will f/u with her PCP, transport with family, and continue per her plan of care. CM will continue to follow. PFSH All Active Problems (Updated 02/09/24 @ 18:28 by Geo Aceves) Fever (Acute) Hyponatremia (Acute) DVT prophylaxis (Acute) Hypomagnesemia (Acute) Acute kidney injury due to COVID-19 (Acute) Acute hypoxic respiratory failure (Acute) COVID (Acute) Statin intolerance (Acute) Prediabetes (Acute) Mixed hyperlipidemia (Acute) Primary hypertension (Acute) Medical History (Updated 02/09/24 @ 18:28 by Geo Aceves) Gastroesophageal reflux disease without esophagitis Seasonal allergic rhinitis due to pollen Trigeminal neuralgia History of deviated nasal septum Endometritis Surgical History (Updated 02/09/24 @ 18:28 by Geo Aceves) S/P sinus surgery History of tonsillectomy History of appendectomy History of partial hysterectomy Family History (Updated 06/18/23 @ 15:03 by Nahed Canchola) Father Heart attack Daughter Depression Social History (Updated 02/09/24 @ 18:00 by Geo Aceves) Smoking/Tobacco Use Status: Former Tobacco Use Second Hand Exposure: No Smoking risk assessment performed?: Yes Alcohol Intake: never Substance use type: does not use and prescription drug Counseling given: No Adopted: No Caregiver/Support person: No Foster care: No Household members: family Housing: house Number of Children: 2 number of grandchildren: 8 Communication Needs: None Education Level: high school Do you need help understanding health information?: Never current occupation: Retired Pets and animals: Yes (1) Pets and animals: dog(s) Sexually active: No Do you think of yourself as: straight/heterosexual Current gender identity: female What is your relationship status?: How often do you talk on the phone with friends or family?: three or more times per week How often do you get together with friends or relatives?: three or more times per week Do you belong to any clubs or organized social groups?: no Panel score (0-1 are the most socially isolated patients): 1 What type of physical activity do you participate in: walking Duration: 60-90 minutes/day Frequency: daily Chantelle/Spiritism: Hindu Seatbelt use: always Helmet use: No Drive intox or ride w/intox dumpcart driver: No Additional Social history: Lives with daughter Kaye, Kaye's Nirali, and their family. Moved from [facility] after of of 66 years in 2022 Readmission Within the Past 30 Days Yes or No: No SDOH(Care Management) Screening Will the Patient Participate in the Screening?: Yes Do you worry about having a steady place to live?: no Problems where you live: no known problems In the past 12 months, have you had to go without electric, gas, oil or water in your home?: no Have you or anyone in your house had to go without enough food to eat?: no Has lack of transportation kept you from medical appointments or from doing things needed for daily living?: no Has anyone in your support network made you feel unsafe for any reason?: no
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
--- NOTE | 2024-02-10 15:36 | PT.INTREAT ---
PT Notes Visit Reasons: Hypoxia, ALIZE, Covid Physical Therapy Inpatient Treatment Note Date: 02/10/2024 Precautions: Fall. Standard. Activity as tolerated. Social History/Home Situation: Lives with daughter in a private home with 4 steps to enter with rails on both sides. Independent with all aspects of ADLs prior to surgery Equipment Owned/DME: None Subjective: Nurse Aneesh assisted patient onto bedside commode minutes before PT came in. Patient unable to have a bowel movement so was agreeable to walking in the hopes that she may eventually go withincreased movement. Objective: General Observation: Telemetry monitoring in place. Was in commode trying to have a bowel movement when PT came in. Mental Status: Alert and oriented as to person, place, time, and purpose. Able to pay attention, focus, and respond appropriately. Pain: None reported Vital Signs: Closely monitored by nursing staff Bed Mobility/Transfers: Minimal cueing provided for use of B hands as needed for support, movement sequence, AD management, and posture to reduce fall risk and minimize pain report Sit to stand minimal assist with FWW Stand to sit minimal assist with FWW Bed to toilet seat minimal assist with FWW Bedside commode to bed minimal assist with FWW Bed to reclining chair minimal assist with FWW Reclining chair to bed minimal assist with FWW Gait: Facilitate safe and correct performance of level surface using front-wheeled walker for 250 feet with contact-guard assist and wheelchair follow. Minimal shortness of breath resolved with rest. Rebekah decreased. Reported minimal fatigue after activity. Denied headache and chest pain. Mildly lightheaded. No loss of balance. Balance: Static Sitting: Normal Dynamic Sitting: Normal Static Standing: Good Dynamic Standing: Fair Assessment: Limited mainly by shortness of breath and fatigue but with adequate rest, was able to complete this afternoon's tasks. Plan of Care/Treatment Plan: Progress strengthening, bed mobility, transfers, gait, stairs, balance training, and use of assistive device as tolerated. DISCHARGE RECOMMENDATIONS: [] Home with no services [] [X] Home with services. Patient will benefit from home health PT services in order to progress mobility level using least restrictive assistive ambulatory device, assess home safety, identify additional equipment needs, and establish a functional maintenance program that will increase ability of patient to remain at home. [] Home with outpatient PT [] [] SNF for continued rehabilitation [] [] Penitentiary Care [] [] SNF versus LTC based on ability to participate and progress [] TREATMENT CODE/TIME: 68692 x 29 minutes for 2 units (15:36?16:05).
[2024-02-10] MEDS: Enoxaparin 40 MG/0.4 ML SYR SC (17:24)
[2024-02-10] MEDS: Gabapentin 300 MG CAP PO (20:05)
[2024-02-10] MEDS: Polyethylene Glycol 3350 17 GM PACKET PO (20:05)
[2024-02-10] MEDS: Acetaminophen 325 MG TAB 650 MG PO (20:05)
[2024-02-10] MEDS: Senna TAB 1 TAB PO (20:05)
[2024-02-10] MEDS: Ondansetron O.D.T. 4 MG TABEF PO (20:05)
[2024-02-10] MEDS: Normal Saline Flush 10 ML SYR IVP ×2 (20:06→21:53)
[2024-02-10] MEDS: Atenolol 50 MG TAB 25 MG PO (20:06)
[2024-02-10] MEDS: Famotidine 20 MG TAB 40 MG PO (21:52)
[2024-02-10] MEDS: Normal Saline 500 ML 30 ML IV (21:54)
[2024-02-11] MEDS: Normal Saline Flush 10 ML SYR IVP ×4 (00:05→22:32)
[2024-02-11] MEDS: traZODone 50 MG TAB PO (00:49)
[2024-02-11 02:10] VITALS: BP 133/80; PULSE 58; RESP 15; TEMP 36.3; O2SAT 95
[2024-02-11 02:21] VITALS: BP 137/80; PULSE 63; RESP 15; TEMP 36.3; O2SAT 95
--- NOTE | 2024-02-11 02:26 | NUR.NOTE ---
Nursing Note: at 02:00 Patient tele shows sudden changed from normal sinus rhythm to sinus obie. This nurse came to check on patient and found patient sitting on bedside commode for several minutes due to loose stool. Assess patient, she is alert and oriented, slight pale and skin cool to touch, denies dizziness, or nausea. Patient had copious amount of loose stool. Patient reports she feels sweaty. GOVERNMENT RELATIONS ANALYST and charge nurse came in the patient room brought vital sign machine. Patient vital signs taken BP 77/53, with HR 47 bpm, O2 95% on room air, temperature 36.3 degree Fahrenheit. Patient is assisted back in bed, bed position flat, and rechecked vital signs BP 133/80, HR 58, O2 95% on RA, 15 RR, and temperature 36.3. Encourage patient to drink water. Patient requested to back on commode to have another bowel movement. Patient sitting on the commode for about 10 minutes, continue to monitor her status and vital BP and HR. BP at 130's systolic and HR 60's and 70's, O2 95% on room air. Patient is now back in bed, rechecked BP 110/75, hr 62 bpm, O2 95% on room air. Will continue to monitor patient.
[2024-02-11 02:55] VITALS: BP 110/75; PULSE 62; RESP 15; O2SAT 95
[2024-02-11] MEDS: Calcium Carbonate *TUMS* 500 MG CHEW PO (04:47)
[2024-02-11] MEDS: predniSONE 20 MG TAB 40 MG PO (08:25)
[2024-02-11] MEDS: Omeprazole 20 MG CAPCR 40 MG PO (08:25)
[2024-02-11] MEDS: Ezetimibe 10 MG TAB PO (08:25)
[2024-02-11] MEDS: Montelukast 10 MG TAB PO (08:25)
[2024-02-11] MEDS: Famotidine 20 MG TAB PO (08:25)
[2024-02-11] MEDS: Atenolol 50 MG TAB 25 MG PO ×2 (08:25→19:41)
[2024-02-11] MEDS: Lisinopril 10 MG TAB PO (08:25)
[2024-02-11] MEDS: Fluticasone NASAL SPRAY 16 GM BTL NS (08:25)
[2024-02-11 08:49] LABS: Anion Gap 12.8 mmol/L (3-11); BUN 29 mg/dL (7-18); CO2 23.2 mmol/L (21.0-32.0); Calcium 9.1 mg/dL (8.5-10.1); Chloride 101 mmol/L (98-107); Estimated GFR 55.21 (mL/min/1.73m2); Glucose 154 mg/dL (74-106); Potassium 3.5 mmol/L (3.5-5.1); Sodium 137 mmol/L (136-145)
--- NOTE | 2024-02-11 09:22 | NUR.NOTE ---
Nursing Note: I went into patients room for morning med pass. The patient told me she self-administered her eye drops this morning. I asked patient if our pharmacy had looked them over yet. She states they have not. Patient agreeable for me to send eye drops to pharmacy for verification. Pharmacy contacted, eye drops sent for verification.
--- NOTE | 2024-02-11 09:26 | NUR.NOTE ---
Accessed chart to reconcile EKG orders with EKG's in [facility]. Nursing Note:
--- NOTE | 2024-02-11 09:48 | PT.INTREAT ---
PT Notes Visit Reasons: Hypoxia, ALIZE, Covid Physical Therapy Inpatient Treatment Note Date: 02/11/2024 Precautions: Fall. Standard. Activity as tolerated. Subjective: Hopeful about going home tomorrow. Did not have a restful night last night but was agreeable to sessions in the morning and afternoon. In the afternoon, patient stated that she was able to sleep well after lunch and felt better rested. Objective: General Observation: Telemetry monitoring in place. Was in commode trying to have a bowel movement when PT came in. Mental Status: Alert and oriented as to person, place, time, and purpose. Able to pay attention, focus, and respond appropriately. Pain: None reported Vital Signs: Closely monitored by nursing staff Bed Mobility/Transfers: Minimal cueing provided for use of B hands as needed for support, movement sequence, AD management, and posture to reduce fall risk and minimize pain report Sit to stand stand by assist with FWW Stand to sit stand by assist with FWW Bed to toilet seat stand by assist with FWW Bedside commode to bed stand by assist with FWW Bed to reclining chair stand by assist with FWW Reclining chair to bed stand by assist with FWW Gait: Facilitate safe and correct performance of level surface using front-wheeled walker for 250 feet + 100 feet with stand by assist and wheelchair follow. Minimal shortness of breath resolved with rest. Rebekah decreased. Reported minimal fatigue after activity. Denied headache and chest pain as well as lightheadedness. No loss of balance. In the afternoon, a trial of short distance ambulation using a single point cane was made where patient covered about 40 feet with just stand by assist with no report of dyspnea nor fatigue. THERA EX: Worked on increasing B LE strength with stepping exercises using 6-inch step height x 20 reps and progressing to 12-inch step height while holding onto B rails for support. Verbalized mild fatigue that did not limit ability to walk back to room from the therapy gym, mild SOB noted. Balance: Static Sitting: Normal Dynamic Sitting: Normal Static Standing: Good Dynamic Standing: Fair Assessment: Activity tolerance improving. Level of independence progressively coming back. Will continue to assess ability to negotiate level surface without an assistive device before discharge to home. Plan of Care/Treatment Plan: Progress strengthening, bed mobility, transfers, gait, stairs, balance training, and use of assistive device as tolerated. DISCHARGE RECOMMENDATIONS: [] Home with no services [] [X] Home with services. Patient will benefit from home health PT services in order to progress mobility level using least restrictive assistive ambulatory device, assess home safety, identify additional equipment needs, and establish a functional maintenance program that will increase ability of patient to remain at home. [] Home with outpatient PT [] [] SNF for continued rehabilitation [] [] Renewals Representative Care [] [] SNF versus LTC based on ability to participate and progress [] TREATMENT CODE/TIME: Session1-- 11310 x 25 minutes for 2 units, 43980 x 15 minutes for 1 unit (15:36?16:05). Session2-- 07661 x 17 minutes for 1 unit (15:02-15:19).
[2024-02-11] MEDS: DOXYCYCLINE 100 MG in Normal Saline 100 ML IVPB ×2 (10:58→22:31)
[2024-02-11 11:19] VITALS: BP 114/92; PULSE 89; RESP 14; TEMP 36.4; O2SAT 93
[2024-02-11 11:20] LABS: Lyme Ab w Rflx to Lyme Confirm Negative (Negative)
[2024-02-11] MEDS: Normal Saline 1,000 ML 100 ML IV (14:49)
[2024-02-11 15:00] VITALS: BP 129/74; PULSE 71; RESP 18; TEMP 36.5; O2SAT 97
--- NOTE | 2024-02-11 15:05 | PDOC.CMPRO ---
Date of service: 02/11/24 Time of Service: 12:00 Care Management Progress Note Progress Note Text Progress Note Text: Maureen was sitting up on the side of the bed, eating her lunch, when CM met with her today. She looked well, was very pleasant, and easily engaged. Maureen stated that she was very tired. She had been up all night pooping. She had not had a BM in 11 days, and was given medications to help her with that, And boy, did it!. Maureen had a vagal episode on the commode very early this morning, she was pale and sweaty with HR noted at 47. She will be given one more day of observation for this reason. Discharge Potential Discharge Needs: PCP F/U Appt Anticipated Barriers to Discharge: None Identified Patient/Family Education Needs: Review discharge instructions, discuss Ask Me Three Transportation: Private vehicle (with daughter, Kaye) Plan: Anticipate that Maureen will be discharged early tomorrow afternoon. Her daughter, Kaye, works until noon, and can pick her up about 12:30. Maureen will have no new services, and will f/u with her PCP. She will transport with her daughter and continue per the plan of care. CM will continue to follow. SDOH(Care Management) Screening Will the Patient Participate in the Screening?: Yes Do you worry about having a steady place to live?: no Problems where you live: no known problems In the past 12 months, have you had to go without electric, gas, oil or water in your home?: no Have you or anyone in your house had to go without enough food to eat?: no Has lack of transportation kept you from medical appointments or from doing things needed for daily living?: no Has anyone in your support network made you feel unsafe for any reason?: no
--- NOTE | 2024-02-11 16:22 | PGE_ITS ---
Date of Service Date of service: 02/11/24 Time of Service: 16:22 Assessment and Plan Assessment and plan (1) Acute hypoxic respiratory failure: Status: Acute Assessment and plan: Mild hypoxia. Unclear etiology. Now off of oxygen. No clear signs of CHF, small pericardial effusion on CT but echocardiogram reasuring, just mild diastolic dysfunction. Troponins and EKG reassuring. She has a smoking history and some slight wheeziness with cough, possible COPD, will continue steroids and bronchodilators. 02/11/2024 Patient is currently on DuoNeb as well as doxycycline, prednisone, vital signs show 97% on room air. Continue with current care. (2) COVID: Status: Acute Assessment and plan: She was given remdesavir x 1, but > 2 weeks out from diagnosis and negative on repeat swab. No indication for further treatment (3) Fever: Status: Acute Assessment and plan: mild on presentation. Negative repeat viral swabs. No pneumonia, UTI. May be another virus. Will cover for tick bourne illness and send panel Lyme and anaplasmosis are endemic and risk extends into January. -continue doxycycline 02/11/2024 Will continue with current antibiotic regimen. Patient is on doxycycline 100 mg p.o. every 12. Correction is actually IV. (4) Primary hypertension: Status: Acute Assessment and plan: Holding home lisinopril and atenolol, BP and pulse coming up, resume. Splitting atenolol to BID for more even coverage 02/11/2024 Blood pressure is actually really good right now at 129/74. Continue with atenolol 25 p.o. twice daily lisinopril 10 daily. (5) Acute kidney injury due to COVID-19: Status: Acute Assessment and plan: Mild ALIZE with bump of 0.3 from baseline of 0.8. Likely due to poor oral intake in setting of illness. Improved today, continue oral fluids 02/11/2024 but I like to stay on it states the patient is currently BUN and creatinine 29 and 1.0. (6) Hypomagnesemia: Status: Acute Assessment and plan: replaced (7) Hyponatremia: Status: Acute Assessment and plan: Mild, likely a/w hypovolemic state, normalized with hydration 02/11/2024 Patient's sodium is currently 137 so her hyponatremia has resolved start yeah (8) DVT prophylaxis: Status: Acute Assessment and plan: higher risk with recent covid, lmwh (9) Lung nodule seen on imaging study: Status: Acute (10) Esophageal thickening: Status: Acute Subjective Subjective Interval history since last seen: Patient seen and examined in her room this morning. Plan of care discussed with patient as well as on multidisciplinary rounds including bedside nurse. Patient states she feels better but does want to spend 1 more night in the hospital because her daughter will not be able to pick her up because of work. I did discuss with the patient her the findings of her CT scan as well as the recommendation for a repeat CT scan secondary to lung nodule as well as her esophageal findings and the recommendation for endoscopy. Patient states that she did get an endoscopy approximately 5 years ago and had polyps removed. Exam Narrative Exam Narrative: Highlight HEENT: Normocephalic atraumatic mucous membranes moist oropharynx is clear neck: No lymphadenopathy no JVD no thyromegaly Cardiovascular: Regular rate and rhythm no murmur rubs gallops Lungs: Clear to auscultation bilaterally good air exchange no accessory muscle use Abdomen: Soft nontender nondistended bowel sounds are active extremities: No sinus clubbing or edema alert Neurologic cranial nerves II through XII intact as tested reflexes in upper and lower extremity levels test this is likely correct. Continue with alcohol psych: Affect is appropriate she is alert and oriented Objective Last Vital Signs Temp 36.5 C 02/11/24 15:00 Pulse 71 02/11/24 15:00 Resp 18 02/11/24 15:00 BP 129/74 02/11/24 15:00 Pulse Ox 97 02/11/24 15:00 Laboratory Results - last 24 hr 02/11/24 05:58 Sodium 137 Potassium 3.5 Chloride 101 Carbon Dioxide 23.2 Anion Gap 12.8 H BUN 29 H Creatinine 1.0 Est GFR (CKD-EPI 2020) 55.21 Glucose 154 H Calcium 9.1 Time Spent with Patient Time Spent with Patient: 35-49 minutes Time was spent: preparing to see the patient(eg.review tests), obtaining and/or reviewing separately otained hiistory, ordering medications,tests, procedures, referring, communicating with other health career information specialist, indepentently interpreting results, counseling the patient and care coordination
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
[2024-02-11] MEDS: Enoxaparin 40 MG/0.4 ML SYR SC (18:41)
[2024-02-11] MEDS: Gabapentin 300 MG CAP PO (19:40)
[2024-02-11] MEDS: Acetaminophen 325 MG TAB 650 MG PO (19:40)
[2024-02-12 03:18] VITALS: BP 125/62; PULSE 64; RESP 18; TEMP 36; O2SAT 97
[2024-02-12 06:42] LABS: HCT 31.9 % (36.0-46.0); HGB 10.4 g/dL (11.2-15.7); MCHC 32.6 % (32.0-36.0); MCV 95 fL (80-95); MPV 10.9 fL (8.0-11.0); Platelet Count 199 10^3/uL (130-400); RBC 3.36 10^6/uL (3.93-5.22); RDW 13.3 % (11.7-14.6); RDW-SD 46.8 fL
[2024-02-12 07:24] VITALS: BP 118/67; PULSE 73; RESP 16; TEMP 36.5; O2SAT 95
[2024-02-12 07:28] LABS: ALT 25 U/L (14-59); AST 21 U/L (15-37); Albumin 2.1 g/dL (3.4-5.0); Alkaline Phosphatase 63 U/L (46-116); Anion Gap 8.4 mmol/L (3-11); BUN 26 mg/dL (7-18); Bilirubin, Total 0.41 mg/dL (0.2-1.0); CO2 24.6 mmol/L (21.0-32.0); Calcium 8.8 mg/dL (8.5-10.1); Chloride 110 mmol/L (98-107); Estimated GFR 55.21 (mL/min/1.73m2); Glucose 98 mg/dL (74-106); Potassium 3.7 mmol/L (3.5-5.1); Sodium 143 mmol/L (136-145); Total Protein 6.5 g/dL (6.4-8.2)
[2024-02-12] MEDS: Atenolol 50 MG TAB 25 MG PO (08:09)
[2024-02-12] MEDS: Montelukast 10 MG TAB PO (08:10)
[2024-02-12] MEDS: predniSONE 20 MG TAB 40 MG PO (08:10)
[2024-02-12] MEDS: Ezetimibe 10 MG TAB PO (08:10)
[2024-02-12] MEDS: Omeprazole 20 MG CAPCR 40 MG PO (08:10)
[2024-02-12] MEDS: Famotidine 20 MG TAB PO (08:11)
[2024-02-12] MEDS: Lisinopril 10 MG TAB PO (08:11)
[2024-02-12] MEDS: Fluticasone NASAL SPRAY 16 GM BTL NS (08:32)
--- NOTE | 2024-02-12 08:46 | PT.INTREAT ---
PT Notes Visit Reasons: Hypoxia, ALIZE, Covid Physical Therapy Inpatient Treatment Note Date: 02/12/2024 Precautions: Fall. Standard. Activity as tolerated. Subjective: Still feels a little wobbly but able to self-correct and not lose balance. Agreeable to having home health PT come in for a short time to continue work on balance. Agrees that using front-wheeled walker helps a lot with stability. Okay with using her front-wheeled walker specially at night to transfer to [facility] that her shahabugRayo is hoping to get for her prior to going home. Objective: General Observation: Telemetry monitoring in place. Was in [facility] trying to have a bowel movement when PT came in. Mental Status: Alert and oriented as to person, place, time, and purpose. Able to pay attention, focus, and respond appropriately. Pain: None reported Vital Signs: Closely monitored by nursing staff Bed Mobility/Transfers: Minimal cueing provided for use of B hands as needed for support, movement sequence, AD management, and posture to reduce fall risk and minimize pain report Sit to stand supervision with FWW Stand to sit supervision with FWW Bed to toilet seat supervision with FWW Bedside commode to bed supervision with FWW Bed to reclining chair supervision with W Reclining chair to bed supervision with FWW Gait: Facilitate safe and correct performance of level surface using front-wheeled walker for 300 feet with stand by assist and wheelchair follow. Minimal shortness of breath resolved with rest. Rebekah decreased. Reported minimal fatigue after activity. Denied headache and chest pain as well as lightheadedness. No loss of balance. Performed another trial of short distance ambulation using a single point cane was made where patient covered about 80 feet with contact guard assist with no report of dyspnea nor fatigue. Balance: Static Sitting: Normal Dynamic Sitting: Normal Static Standing: Good Dynamic Standing: Fair Assessment: Activity tolerance improving. Level of independence progressively coming back. Will continue to assess ability to negotiate level surface without an assistive device before discharge to home. Plan of Care/Treatment Plan: Progress strengthening, bed mobility, transfers, gait, stairs, balance training, and use of assistive device as tolerated. DISCHARGE RECOMMENDATIONS: [] Home with no services [] [X] Home with services. Patient will benefit from home health PT services in order to progress mobility level using least restrictive assistive ambulatory device, assess home safety, identify additional equipment needs, and establish a functional maintenance program that will increase ability of patient to remain at home. [] Home with outpatient PT [] [] SNF for continued rehabilitation [] [] Nursing Home Care [] [] SNF versus LTC based on ability to participate and progress [] TREATMENT CODE/TIME: 49737 x 25 minutes for 2 units (09:35?10:00).
[2024-02-12] MEDS: DOXYCYCLINE 100 MG in Normal Saline 100 ML IVPB (10:45)
[2024-02-12] MEDS: Normal Saline Flush 10 ML SYR IVP (10:46)
[2024-02-12 11:10] VITALS: BP 111/73; PULSE 72; RESP 16; TEMP 36.3; O2SAT 95
--- NOTE | 2024-02-12 12:04 | CMDISCH_ITS ---
Date of service: 02/12/24 Time of Service: 12:04 LACE Index Scoring Tool Questions: Length of Stay (in days): 3 Was the patient admitted via the E.D.?: Yes E.D. Visits: 2 Answers: Total Score: 8 Risk of Readmission: Low Risk Care Management Discharge Plan Reason for Hospitalization: Acute hypoxic respiratory failure, covid Discharge Plan: Discharge home with [facility] PT services via private vehicle with family. Follow up with community providers and discharge plan of care as instructed. Order for a commode was placed prior to discharge, insurance coverage is unknown at the time of discharge and is likely to be an out of pocket expense. Patient/Family Education Needs: Review discharge instructions, limitations, medications and plan to follow up with community providers. Discuss ask me three. Services Needed at Discharge: Home Health Care Services ([facility] PT) [facility] Health Related Social Needs: No Data to Display
[2024-02-12 12:18] LABS: Vitamin B12 873 pg/mL (193-986)
--- NOTE | 2024-02-12 12:23 | W.PM.DS.N ---
Date of service: 02/12/24 Time of Service: 12:24 DS: Diagnosis Discharge Diagnosis (1) Acute hypoxic respiratory failure: Status: Acute (2) COVID: Status: Acute (3) Fever: Status: Acute (4) Primary hypertension: Status: Acute (5) Acute kidney injury due to COVID-19: Status: Acute (6) Hypomagnesemia: Status: Acute (7) Hyponatremia: Status: Acute (8) DVT prophylaxis: Status: Acute (9) Lung nodule seen on imaging study: Status: Acute (10) Esophageal thickening: Status: Acute Discharge Plan Disposition Patient Disposition: Home W/Home Health Services Condition: Stable Discharge Details Reason For Visit: Hypoxia, ALIZE, Covid Admit Date/Time: 02/09/24 17:40 Admit Provider: Geo Aceves Attending Provider: Geo Aceves Primary Care Provider: Lyndsay Mujica Hospital Course Hospital Course: This is a 83-year-old female who was admitted to the hospital on 02/09/2024 with hypoxia. The original diagnosis was COPD exacerbation as well as possible Lyme's disease. While she has been here she has been taking doxycycline as well as steroids and inhalers. On 11 of February she has to be discharged home to which we have agreed. While she was here she was also diagnosed with possible long COVID syndrome, as well as fever of unknown origin, acute kidney injury now resolved, hypomagnesemia. While she was here a CT scan was done which showed a approximately 1 x 1 cm left lingular nodule as well as mid and distal esophageal swelling. Per the CT report recommendation of repeat CT in 3 months as well as an EGD was noted. I did discuss these findings with the patient as well as her daughter. While she was here her daughter stated that she was also having some gait abnormalities and was seen in consult with physical therapy. She was given a walker and a bedside commode. Home Meds and New Rx's Prescriptions: New doxycycline hyclate 100 mg capsule 100 mg PO BID Qty: 28 0RF Continued Pataday Once Daily Relief 0.7 % drops 1 drp ophthalmic (eye) QAM fluticasone propionate [Flonase Allergy Relief] 50 mcg/actuation spray,suspension 1 spray intranasal DAILY Rx Instructions: administer into each nostril atenolol 50 mg tablet 50 mg PO DAILY Qty: 90 3RF lisinopril 10 mg tablet 10 mg PO DAILY Qty: 90 3RF montelukast 10 mg tablet 10 mg PO DAILY Qty: 90 3RF omeprazole 40 mg capsule,delayed release(DR/EC) 40 mg PO DAILY Qty: 90 3RF benzonatate 200 mg capsule 200 mg PO BID PRN (Reason: cough) Qty: 90 1RF gabapentin 300 mg capsule 300 mg PO QHS Qty: 90 3RF ezetimibe 10 mg tablet 10 mg PO DAILY Qty: 90 3RF Discontinued triamcinolone acetonide 0.5 % cream 1 applic topical BID Discharge Instructions Referrals: Lyndsay Mujica CERTIFIED OPTICIAN [Primary Care Provider] - (follow up with PCP in 3-5 days.. Recommend endoscopy/PFT/repeat ct of chest in 3 months) Activity:: Activity as Tolerated Equipment/Supplies:: Walker Diet:: As Tolerated DS: Summary Time Spent with Patient providing and/or coordinating discharge services: Greater than 30 minutes Status at Discharge Functional status at discharge: uses cane/walker Overall status at discharge: patient is back to baseline Mental Status: mental status grossly normal Speech and Movement: speech and movement normal Mood: congruent mood Affect: normal affect Quality:SDOH Health Related Social Needs: No Data to Display Exam Narrative Exam Narrative: Highlight HEENT: Normocephalic atraumatic mucous membranes moist oropharynx is clear neck: No lymphadenopathy no JVD no thyromegaly Cardiovascular: Regular rate and rhythm no murmur rubs gallops Lungs: Clear to auscultation bilaterally good air exchange no accessory muscle use Abdomen: Soft nontender nondistended bowel sounds are active extremities: No sinus clubbing or edema alert Neurologic cranial nerves II through XII intact as tested reflexes in upper and lower extremity levels test this is likely correct. Continue with alcohol psych: Affect is appropriate she is alert and oriented Psych Mental Status: mental status grossly normal Speech and Movement: speech and movement normal Mood: congruent mood Affect: normal affect DS: Data Vitals/I&O Vitals and I&O: Vital Signs Temperature 36.3 C L 02/12/24 11:10 Temperature Source Tympanic 02/12/24 11:10 Pulse 72 02/12/24 11:10 Pulse Rhythm Regular 02/09/24 20:07 Pulse 87 02/09/24 17:46 Respiratory Rate 16 02/12/24 11:10 Respiratory Effort Normal, Short of Breath 11/12/24 20:07 Respiratory Depth Normal 02/09/24 20:07 Respiratory Pattern Normal 02/09/24 20:07 Blood Pressure 111/73 02/12/24 11:10 Blood Pressure Mean 72 02/09/24 18:46 Pulse Oximetry 95 02/12/24 11:10 Oxygen Delivery Method Room Air 02/12/24 11:10 Oxygen Flow Rate 0 02/12/24 11:10 Fraction of Inspired Oxygen (FIO2) 100 02/09/24 15:30 Pain Level 0 02/12/24 11:10 Comment RN notified 02/12/24 11:10 Comment 2 lpm O2 02/09/24 16:21 Intake & Output 02/11/24 02/12/24 02/12/24 23:59 11:59 23:59 Intake Total 500 / 766 470 / 570 100 / 570 Output Total 200 / 600 1550 / 1550 Balance 300 / 166 -1080 / -980 100 / -980 Weight 64 kg Intake: IV 500 / 766 120 / 220 100 / 220 Oral 350 / 350 Output: Urine 200 / 600 1550 / 1550 Other: Urine Color Yellow Yellow Urine Appearance Clear Clear Urine Odor Normal Normal Data Completed and Pending Labs on day of discharge: Labs from last 24 hours 02/12/24 02/12/24 02/12/24 11:22 10:57 05:54 WBC 6.10 RBC 3.36 L Hgb 10.4 L Hct 31.9 L MCV 95 MCH 31.0 MCHC 32.6 RDW 13.3 Plt Count 199 D MPV 10.9 Sodium 143 Potassium 3.7 Chloride 110 H Carbon Dioxide 24.6 Anion Gap 8.4 BUN 26 H Creatinine 1.0 Est GFR (CKD-EPI 2020) 55.21 Glucose 98 Calcium 8.8 Total Bilirubin 0.41 AST 21 ALT 25 Alkaline Phosphatase 63 Total Protein 6.5 Albumin 2.1 L Vitamin B12 Pending Cancelled Lyme Disease Antibody 02/11/24 02/09/24 05:58 14:15 WBC RBC Hgb Hct MCV MCH MCHC RDW Plt Count MPV Sodium 137 Potassium 3.5 Chloride 101 Carbon Dioxide 23.2 Anion Gap 12.8 H BUN 29 H Creatinine 1.0 Est GFR (CKD-EPI 2020) 55.21 Glucose 154 H Calcium 9.1 Total Bilirubin AST ALT Alkaline Phosphatase Total Protein Albumin Vitamin B12 Lyme Disease Antibody Negative Preliminary micro results at discharge 02/09/24 15:25 Blood Culture - Preliminary Blood NO GROWTH 48 HOURS 02/09/24 14:15 Blood Culture - Preliminary Blood NO GROWTH 48 HOURS PFSH All Active Problems (Updated 02/12/24 @ 12:15 by Ra Roach MD) Esophageal thickening (Acute) Lung nodule seen on imaging study (Acute) Fever (Acute) Hyponatremia (Acute) DVT prophylaxis (Acute) Hypomagnesemia (Acute) Acute kidney injury due to COVID-19 (Acute) Acute hypoxic respiratory failure (Acute) COVID (Acute) Statin intolerance (Acute) Prediabetes (Acute) Mixed hyperlipidemia (Acute) Primary hypertension (Acute) Medical History (Updated 02/12/24 @ 12:15 by Ra Roach MD) Gastroesophageal reflux disease without esophagitis Seasonal allergic rhinitis due to pollen Trigeminal neuralgia History of deviated nasal septum Endometritis Surgical History (Updated 02/09/24 @ 18:28 by Geo Aceves) S/P sinus surgery History of tonsillectomy History of appendectomy History of partial hysterectomy Family History (Updated 06/18/23 @ 15:03 by Nahed Canchola) Father Heart attack Daughter Depression Social History (Updated 02/09/24 @ 18:00 by Geo Aceves) Smoking/Tobacco Use Status: Former Tobacco Use Second Hand Exposure: No Smoking risk assessment performed?: Yes Alcohol Intake: never Substance use type: does not use and prescription drug Counseling given: No Adopted: No Caregiver/Support person: No Foster care: No Household members: family Housing: house Number of Children: 2 number of grandchildren: 8 Communication Needs: None Education Level: high school Do you need help understanding health information?: Never current occupation: Retired Pets and animals: Yes (1) Pets and animals: dog(s) Sexually active: No Do you think of yourself as: straight/heterosexual Current gender identity: female What is your relationship status?: How often do you talk on the phone with friends or family?: three or more times per week How often do you get together with friends or relatives?: three or more times per week Do you belong to any clubs or organized social groups?: no Panel score (0-1 are the most socially isolated patients): 1 What type of physical activity do you participate in: walking Duration: 60-90 minutes/day Frequency: daily Chantelle/Protestant: Anabaptist Seatbelt use: always Helmet use: No Drive intox or ride w/intox spotter driver: No Additional Social history: Lives with daughter Kaye, Kaye's Nirali, and their family. Moved from [facility] after of of 66 years in 2022 Time Spent with Patient Time Spent with Patient: 45-69 minutes Time was spent: preparing to see the patient(eg.review tests), obtaining and/or reviewing separately otained hiistory, ordering medications,tests, procedures, referring, communicating with other health manager medicare marketing, indepentently interpreting results, counseling the patient and care coordination
--- NOTE | 2024-02-12 12:27 | PDOC.HHF2F_ITS ---
Home Health Referral Home Health Orders Clinical synopsis of why skilled professionals are needed: weakness and gait disturbance Medical diagnosis necessitation home health referral: weakness and gait disturbance Registered Nurse: Check all that apply Other: physical therapy for gait improvement Home Bound Status Requires the aid of supportive device (check all that apply): Bart Describe why leaving home would require a considerable and taxing effort: Requires frequent rest periods Encounter Date and Reason: I certify that a FTF encounter for this patient was performed on February 12, 2024 and that such encounter was related to the primary reason the patient requires home health services. The encounter was conducted in the following manner: * By me as the certifying physician, FERMENTER CHAMPAGNE, PA or * By an inpatient physician, FERMENTER CHAMPAGNE or PA during an inpatient stay who communicated findings to me, Certification And Authentication I certify that I composed the above information based on my clinical judgment relating to this patient's medical condition and, if applicable, clinical findings communicated to me by the NPP or inpatient physician who performed the FTF encounter. Name of Provider that will be monitoring home health services: Lyndsay Mujica
[2024-02-12 15:05] VITALS: BP 113/67; PULSE 74; RESP 16; TEMP 36.4; O2SAT 93
[2024-02-13 00:16] LABS: B. miyamotoi PCR Negative (Negative); Babesia divergens/MO-1 Negative (Negative); Babesia duncani Negative (Negative); Babesia microti Negative (Negative); Ehrlichia chaffeensis Negative (Negative); Ehrlichia ewingii/canis Negative (Negative); Ehrlichia muris eauclairensis Negative (Negative)
[2024-02-13 00:25] LABS: Anaplasma phagocytophilum Positive (Negative)
--- NOTE | 2024-02-24 15:36 | NUR.NOTE ---
Accessed patient chart to print provider note to be faxed to [facility] for billing purposes. Nursing Note:
== END 2024-02-12 16:38 | disposition home health service (06) ==
LOC: ER 16:30 → MS 19:02
PROVIDERS: Hospitalist; Physician Assistant; Admitting Provider Family Medicine; Emergency Provider Physician Assistant; PCP Nurse Practitioner; Visit Provider Family Medicine
DX: J96.01 Acute respiratory failure with hypoxia (principal); R50.9 Fever, unspecified; U07.1 COVID-19; I10 Essential (primary) hypertension; N17.9 Acute kidney failure, unspecified; E83.42 Hypomagnesemia; E87.1 Hypo-osmolality and hyponatremia; R91.1 Solitary pulmonary nodule; E78.2 Mixed hyperlipidemia; R73.03 Prediabetes; Z87.891 Personal history of nicotine dependence; R53.1 Weakness; K21.9 Gastro-esophageal reflux disease without esophagitis; R26.9 Unspecified abnormalities of gait and mobility
CPT/HCPCS: 00123; 36415; 74177; 80048; 80053; 84145; 85027; 87040; 87637; 87798; 93005; 96361; 96365; 96366; 96367; 96372; 96375; 97110; 97162; 97530; 99291; J1650; 71046; 71260; 81003; 81015; 82607; 83605; 83735; 84484; 85025; 86618; 93010; 93306; 99222; 99232; 99239; G0378; J0131; J0248; J0696; J1100; J2405; J3490; J7512

== ENCOUNTER → 2024-04-04 13:44 | Outpatient (BNVA) | payer MEDICARE, SELFPAY | PROVIDERS: PCP Nurse Practitioner; Referring Provider Nurse Practitioner; Visit Provider Surgery | DX: K44.9 Diaphragmatic hernia without obstruction or gangrene (principal); K22.89 Other specified disease of esophagus; D64.9 Anemia, unspecified; E88.09 Other disorders of plasma-protein metabolism, not elsewhere classified; E46 Unspecified protein-calorie malnutrition; I10 Essential (primary) hypertension; K21.9 Gastro-esophageal reflux disease without esophagitis; R93.89 Abnormal findings on diagnostic imaging of other specified body structures | CPT/HCPCS: 99214 ==

== ENCOUNTER 2024-04-05 16:21 | Outpatient (CLI) | payer MEDICARE, SELFPAY ==
[2024-04-05 13:47] LABS: Abs Immature Grans 0.02 10^3/uL (0.0-0.06); Absolute Basophil Count 0.04 10^3/uL (0.0-0.2); Absolute Eosinophil Count 0.29 10^3/uL (0.0-0.7); Absolute Lymphocyte Count 2.03 10^3/uL (1.2-3.4); Absolute Monocyte Count 0.56 10^3/uL (0.1-0.8); Absolute Neutrophil Count 3.06 10^3/uL (1.2-6.7); Basophils % 0.7 %; Eosinophils % 4.8 %; HCT 42.4 % (36.0-46.0); HGB 13.5 g/dL (11.2-15.7); Immature Grans % 0.3 %; Lymphocytes % 33.8 %; MCH 31.1 pg (27.0-33.0); MCHC 31.8 % (32.0-36.0); MCV 98 fL (80-95); Monocytes % 9.3 %; Neutrophils % 51.1 %; Platelet Count 236 10^3/uL (130-400); RBC 4.34 10^6/uL (3.93-5.22); RDW-SD 50.6 fL
[2024-04-05 14:11] LABS: ALT 18 U/L (14-59); AST 21 U/L (15-37); Albumin 3.8 g/dL (3.4-5.0); Alkaline Phosphatase 58 U/L (46-116); Anion Gap 7.8 mmol/L (3-11); BUN 18 mg/dL (7-18); Bilirubin, Total 0.33 mg/dL (0.2-1.0); CO2 28.2 mmol/L (21.0-32.0); Calcium 9.6 mg/dL (8.5-10.1); Chloride 106 mmol/L (98-107); Estimated GFR 55.21 (mL/min/1.73m2); Ferritin 76 ng/mL (8-252); Glucose 150 mg/dL (74-106); Potassium 4.2 mmol/L (3.5-5.1); Sodium 142 mmol/L (136-145); Total Protein 7.8 g/dL (6.4-8.2)
== END 2024-04-05 16:22 | disposition home or self-care (01) ==
LOC: LBO 16:23
PROVIDERS: PCP Nurse Practitioner; Visit Provider Surgery
DX: D64.9 Anemia, unspecified (principal); E88.09 Other disorders of plasma-protein metabolism, not elsewhere classified; E46 Unspecified protein-calorie malnutrition; I10 Essential (primary) hypertension; E78.2 Mixed hyperlipidemia; R73.03 Prediabetes; K22.89 Other specified disease of esophagus; K44.9 Diaphragmatic hernia without obstruction or gangrene; K21.9 Gastro-esophageal reflux disease without esophagitis
CPT/HCPCS: 36415; 80053; 82728; 85025

== ENCOUNTER 2024-04-26 06:48 | Day surgery (SDC) | payer MEDICARE, SELFPAY ==
--- NOTE | 2024-04-25 23:18 | W.PM.ENDDOP ---
Date of service: 04/19/24 Time of Service: 11:38 Endoscopy Report DATE OF PROCEDURE: 04/26/24 PRE-OP DIAGNOSIS: mass on CT/Hx of gerd and hiatal hernia POST-OP DIAGNOSIS: other (larg ehiatla hernia ) SURGEON: Serenity Mackey ANESTHESIA TYPE: General:No Airway ESTIMATED BLOOD LOSS: 1 PATHOLOGY: other COMPLICATIONS: None DISPOSITION: same day PROCEDURE DESCRIPTION: Informed consent was obtained from the pt; explaining the benefits and Risks: bleeding, infections, perforations {which could require surgery or antibiotics and prolonged hospital stay}, or ostomy, and complications of anaesthesia, hussain aspiration). The patient was take to the procedure room and placed in a supine position. Monitors were applied and a time out was done. The patients name, date of , procedure type, allergies to medications and metal in their body was reviewed. A bite block was placed and the patient was sedated. Once sedated and comfortable an Olympus gastroscope (see RN notes for scope #) was advanced through the oropharynx which was grossly normal, and passed into the esophagus. The proximal and mid-esophagus were normal. The distal esophagus does not show any: dilation/strictures/varices/erosions or ulcers/bleeding noted. The scope was advanced into the stomach and through the pylorus into the proximal jejunum. The duodenum was noted to be normal. Biopsies were done of the duodenal bulb.. The scope was retracted back into the stomach and biopsies were taken of the antrum. There were no gastritis/gastropathy/ ulcers/masses noted. The scope was retroflexed. The cardia and fundus were noted to be normal. There were large a hiatal hernia noted-at least a third of the stomach is above the diaphragm. There is no signs of ischemia.. The scope was retracted back into the esophagus and biopsies were done of the GE junction (in all 4 quadrants) and distal esophagus (2cm above the GE junction) to rule out Arita's. All specimens are retrieved and no bleeding was noted. The Z line was regular. The scope was removed and the patient was woken up and taken back to [facility] in stable condition.
--- NOTE | 2024-04-25 23:21 | W.PM.DSUDISC ---
Date of service: 04/26/24 Discharge Plan Disposition Patient Disposition: Home Discharge Details Reason For Visit: egd Attending Provider: Serenity Mackey Primary Care Provider: Lyndsay Mujica Home Meds and New Rx's Prescriptions: No Action Pataday Once Daily Relief 0.7 % drops 1 drp ophthalmic (eye) QAM fluticasone propionate [Flonase Allergy Relief] 50 mcg/actuation spray,suspension 1 spray intranasal DAILY Rx Instructions: administer into each nostril atenolol 50 mg tablet 50 mg PO DAILY Qty: 90 3RF lisinopril 10 mg tablet 10 mg PO DAILY Qty: 90 3RF montelukast 10 mg tablet 10 mg PO DAILY Qty: 90 3RF omeprazole 40 mg capsule,delayed release(DR/EC) 40 mg PO DAILY Qty: 90 3RF benzonatate 200 mg capsule 200 mg PO BID PRN (Reason: cough) Qty: 90 1RF ezetimibe 10 mg tablet 10 mg PO DAILY Qty: 90 3RF Discharge Instructions Additional Instructions: Post EGD Instruction ?You had anesthesia for your EGD/stomach scope today.? For your safety, please do the following for the next twenty-four (24) hours: Do Not operate a motor vehicle (car, truck, motorcycle, etc.) Do Not drink alcoholic beverages or use any recreational drugs for the first 24 hours or while taking pain medications. The medications in your body may have a reaction that can be dangerous. Do Not make any important decisions or sign any important papers You have just had a gastroscopy (EGD) or upper GI tract examination. It is important for your smooth recovery that you carefully follow the recommendations below. Do not hesitate to call if any questions should arise about your anesthesia, condition, or care. -Symptoms you may experience during the next 24 hours: ?1. Mild abdominal pain or excessive gas or a bloated feeling which improves with rest, liquids, eating? slightly, and walking as tolerated. 2. Drowsiness and/or forgetfulness because of the medications you were given. 3. A sore throat which you can treat with throat lozenges or by gargling with salt water 4-5 times a day. 4. Redness at the site of your IV which you can treat with warm compresses. SPECIAL INSTRUCTIONS: 1. You may resume your previous diet in one hour. We recommend a light meal to start, then progress as tolerated. 2. Restart regular medications in one hour. 3. No aspirin or non-steroidal containing medication for 24 hrs. 4. No lifting over 20 pounds or strenuous activity for the first 24 hours after your procedure. After 24 hours there are no restrictions on your activity, but you may feel fatigued for a few days. -Findings: large Hiatal Hernia -Medications: Continue omeprazole -see hand out -Continue to follow lifestyle modifications: No alcohol, tobacco products, Aspirin or NSAID's (ibuprofen, Motrin, Naprosyn, aleve, etc).? Try to limit/avoid:? soda pop/any carbonated beverages, caffeine (including tea & chocolate), and acidic foods, (tomatoes, citrus, onions, peppermints) spicy or fried/fatty foods. Do not lie down for 30 minutes after eating, and do not eat 2 hours prior to bedtime. Avoid wearing tight fitting clothing/ belts. Follow up: -My office will send a letter with the results of your biopsy?s in 2-3wks time. Call the office at [phone] (Office) or [phone] (Hospital), or go to the ER right away if you notice any of the followin. Vomiting blood and /or ?coffee ground? material. ?2. Worsening of abdominal pain or cramping. ?3. Trouble with breathing, cough, and/or fever (temperature above 101.5 F). 4. Increasing pain with swallowing. ?5. Chest pain. 6. Any new symptoms. 7. Worsening of the redness at the IV site Activity:: see above Remove Dressings/Wound Care:: 24 hours Shower/Bathe:: 24 hours Diet:: As Tolerated Discharge Orders Discharge Orders: Discharge Order (Routine); Ordered 04/26/24 Ordered By: Serenity Mackey DS: Diagnosis Discharge Diagnosis (1) Primary hypertension: Status: Acute (2) Mixed hyperlipidemia: Status: Acute (3) Esophageal thickening: Status: Acute Asessment and Plan: Patient is seen and examined after they are endoscopy.? Patient has minimal sore throat.? They have been able to tolerate liquids.? They do not have any nausea vomiting.? They are not having any chest pain or shortness of breath.? They have been able to pass gas and are not having any abdominal pain or distention.? They have not vomited any blood.? The vital signs have been stable-see nursing notes. We discussed findings on their endoscopy. We reviewed the importance of lifestyle modification-see discharge instructions We reviewed any new medications that the patient may be prescribed-see discharge instructions Patient will either be sent a letter with the biopsy results or follow-up in the office-see discharge instructions. Patient was given explicit instructions to follow-up regarding post endoscopy-refer to discharge Patient verbalized understanding and discharged in stable and satisfactory condition.? See nursing notes. (4) Paraesophageal hernia: Status: Acute (5) Prediabetes: Status: Acute (6) Anemia: Status: Chronic (7) Lung nodule seen on imaging study: Status: Acute (8) Gastroesophageal reflux disease without esophagitis: (9) COVID:
[2024-04-26 07:30] VITALS: BP 157/82; PULSE 73; RESP 16; TEMP 36.1; O2SAT 96
[2024-04-26] MEDS: Lactated Ringers 1,000 ML 80 ML IV (08:10)
--- NOTE | 2024-04-26 08:37 | ANES.PREOP_ITS ---
General Info Date of Service Date Performed: 04/26/24 Height: 5 ft 3.5 in Weight: 64.9 kg Body Mass Index (BMI): 24.9 Surgical Procedure: Operation Date: 04/26/24 08:20 Proposed Procedure Side Surgeon p Gastroscopy Serenity Mackey, DO Meds Allergies and Home Medications Allergies Allergy/AdvReac Type Severity Reaction Status Date / Time amoxicillin (From Augmentin) AdvReac Diarrhea Verified 04/26/24 07:45 clavulanic acid (From AdvReac Diarrhea Verified 04/26/24 07:45 Augmentin) Home Medication ?Medication ?Instructions ?Recorded atenolol 50 mg tablet 50 mg PO DAILY #90 tabs 09/01/23 benzonatate 200 mg capsule 200 mg PO BID PRN cough #90 caps 09/01/23 fluticasone propionate 50 1 spray intranasal DAILY 09/01/23 mcg/actuation nasal spray,suspension (Flonase Allergy Relief) lisinopril 10 mg tablet 10 mg PO DAILY #90 tabs 09/01/23 montelukast 10 mg tablet 10 mg PO DAILY #90 tabs 09/01/23 olopatadine 0.7 % eye drops 1 drp ophthalmic (eye) QAM 09/01/23 (Pataday Once Daily Relief) omeprazole 40 mg capsule,delayed 40 mg PO DAILY #90 caps 09/01/23 release ezetimibe 10 mg tablet 10 mg PO DAILY #90 tabs 10/07/23 Current Visit Medications: Current Medications Generic Name Dose Route Start Last Admin Trade Name Freq PRN Reason Stop Dose Admin Ringer's Solution 1,000 mls @ 80 mls/hr 04/26/24 06:00 04/26/24 08:10 IV 04/26/24 23:59 80 mls/hr INFUSION EDGAR Administration IV Miscellaneous Supplies 1 each 04/26/24 06:00 Iv Access IV 04/26/24 23:59 DIRECTED EDGAR Sodium Chloride 0 ml 04/26/24 06:00 Normal Saline Flush 10 Ml Syr IV 04/26/24 23:59 PRN PRN Sodium Chloride 0 ml 04/26/24 06:00 Normal Saline 10 Ml Vial IJ 04/26/24 23:59 DIRECTED PRN Sterile Water 0 ml 04/26/24 06:00 Water,Injection,Sterile 10 Ml Vial IJ 04/26/24 23:59 DIRECTED PRN PFSH Active Problems Active Problems: Problem Status Onset Code 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 Hypoalbuminemia due to protein-calorie malnutrition Acute E88.09, E46 Anemia Chronic D64.9 Esophageal thickening Acute K22.89 Lung nodule seen on imaging study Acute R91.1 Statin intolerance Acute Z78.9 Prediabetes Acute R73.03 Mixed hyperlipidemia Acute E78.2 Primary hypertension Acute I10 Medical History Medical History Fever COVID January 2024 Gastroesophageal reflux disease without esophagitis Seasonal allergic rhinitis due to pollen Trigeminal neuralgia History of deviated nasal septum Endometritis Surgical History Surgical History S/P sinus surgery History of tonsillectomy History of appendectomy History of partial hysterectomy Tobacco Smoking/Tobacco Use Status: Former Tobacco Use Second hand exposure: No Alcohol Alcohol Intake: never Substance Use Substance use type: does not use and prescription drug Vital Signs and Lab Results Vital Signs Most Recent Vital Signs in EMR: Most Recent Vital Signs Temp Pulse Resp BP Pulse Ox 36.1 C L 73 16 157/82 H 96 04/26/24 07:30 04/26/24 07:30 04/26/24 07:30 04/26/24 07:30 04/26/24 07:30 Lab Results Blood Type / Crossmatch: No Data to Display Complete Blood Count: White Blood Count 6.00 10^3/uL (4.4-10.8) 04/05/24 13:30 Red Blood Count 4.34 10^6/uL (3.93-5.22) 04/05/24 13:30 Hemoglobin 13.5 g/dL (11.2-15.7) 04/05/24 13:30 Hematocrit 42.4 % (36.0-46.0) 04/05/24 13:30 Platelet Count 236 10^3/uL (130-400) 04/05/24 13:30 Complete Metabolic Panel: Sodium 142 mmol/L (136-145) 04/05/24 13:30 Potassium 4.2 mmol/L (3.5-5.1) 04/05/24 13:30 Chloride 106 mmol/L (98-107) 04/05/24 13:30 Carbon Dioxide 28.2 mmol/L (21.0-32.0) 04/05/24 13:30 BUN 18 mg/dL (7-18) 04/05/24 13:30 Creatinine 1.0 mg/dL (0.55-1.02) 04/05/24 13:30 Est GFR (CKD-EPI 2020) 55.21 (mL/min/1.73m2) 04/05/24 13:30 Calcium 9.6 mg/dL (8.5-10.1) 04/05/24 13:30 Albumin 3.8 g/dL (3.4-5.0) 04/05/24 13:30 Glucose 150 mg/dL (74-106) H 04/05/24 13:30 Liver Function Panel: Alanine Aminotransferase (ALT/SGPT) 18 U/L (14-59) 04/05/24 13: 30 Aspartate Amino Transf (AST/SGOT) 21 U/L (15-37) 04/05/24 13:30 Coagulation Panel: No Data to Display Cardiac Panel: No Data to Display Arterial Blood Gas: No Data to Display Venous Blood Gas: No Data to Display Pancreas Panel: No Data to Display Thyroid Panel: No Data to Display Infectious Disease: No Data to Display Blood Cultures: No Data to Display Toxicology Panel: No Data to Display Imaging and Studies Imaging and Studies Study information below may be from another EMR and interpreted by another provider. Please see original notes in EMR for more complete details. EKG Summary: EKG PATIENT NAME: Maureen Archer UNIT #: [id number] ORDERING PROVIDER: Geo Aceves PRIMARY CARE PROVIDER: CASSIE ROMERO NP DATE/TIME OF SERVICE: 02/09/241843 : 1940 PERFORMING LOCATION: [place] APPROVED REPORT Exam: Resting ECG Reason for Exam: weakness Patient Location: E HR:89 bpm ECG Measurements Heart Rate 89 AXIS WY 181 P [id number] QRSd 98 QRS -2 QT 377 T13 QTc 459 Conclusion Normal Electrocardiogram <Electronically signed by IMTIAZ BUI MD in [place]> E-Sign Date: 02/11/24 E-Sign Time: 1007 ADDENDUM APPROVED REPORT Exam: Resting ECG Reason for Exam: weakness Patient Location: E HR:89 bpm ECG Measurements Heart Rate 89 AXIS WY 181 P [id number] QRSd 98 QRS -2 QT 377 T13 QTc 459 Conclusion Normal Electrocardiogram Electronically signed by: <Electronically signed by Imtiaz Bui M.D. in [place]> 02/11/24 1007 Cosigned by: Echocardiogram Summary: PDF of report in chart. Reviewed. Anesthesia Assessment and Plan Anesthesia History Personal History: No History of Anesthesia Complications Family History: No Family History of Anesthesia Complications Exercise Tolerance Exercise Tolerance: Metabolic Equivalents>4 Pertinent Negatives Pertinent Negatives: No Symptoms of GERD, No Major Cardiovascular Symptoms or Complaints, No Major Pulmonary Symptoms or Complaints and No History of CVA/TIA Cardiac & Pulmonary Exam Cardiac Exam: Normal S1/S2 Heart Sounds Pulmonary Exam: Clear Bilateral Breath Sounds Implantable Cardiac Device Does patient have a Pacemaker or an ICD?: No Airway Exam Known Difficult Airway: No Mallampati Class: 2 Mouth Opening: Normal (> 3cm) Thyromental Distance: Greater than 3 cm Neck Range of Motion: Full ROM Neck Circumference: Normal Teeth Condition: Normal Dentition (Upper and lower partials left at home. Missing a number of teeth throughout. Teeth remaining in good condition, nothing loose, chipped, cracked, broken, or sharp perpatient ) ASA Classification ASA Score: ASA 3 Emergency Case?: No NPO Status NPO Status: NPO Clears >2 hours, Solids >8 hours Anesthesia Plan Resuscitation Status: Full Code Anesthesia Technique: General Anesthesia Airway Planned: Natural Airway Monitors Used: Standard Monitors
[2024-04-26 08:39] VITALS: BMI 24.9
--- NOTE | 2024-04-26 09:07 | STOM_PTH ---
PATIENT: Maureen Archer LOC: [facility] U#:[id number] AGE/SX: 83/F ROOM: RE04/26/[address]: Serenity Mackey : 1940 BED: DIS: 04/26/2024 SPEC #: [id number] RECD: 04/26/24 12:20 STATUS: BERNADETTE REJoyce #: [id number] KARSTEN: 04/26/24 09:[address]: Serenity Mackey DEPT: Surgical Specimen RECD BY: Nela Felix ENTERED: 04/26/24 12:21 SP TYPE: STOMACH OTHR DR: Lyndsay Mujica APRN Tissues: 1 - BIOPSY BOWEL 2 - STOMACH BIOPSY 3 - STOMACH BIOPSY 4 - ESOPHAGUS BIOPSY Procedures: GROSS AND MICRO LEVEL 4 Comments: [id number]
[2024-04-26 09:21] VITALS: BP 123/75; PULSE 73; RESP 18; TEMP 36.1; O2SAT 94
--- NOTE | 2024-04-26 09:44 | W.ANESPOSTOP ---
Postoperative Evaluation Date, Time and Location Date Performed: 04/26/24 Time Performed: 09:44 Patient Location: Day Surgery Unit Vital Signs Most Recent Imported Vital Signs: Most Recent Vital Signs Temp Pulse Resp BP Pulse Ox 36.1 C L 73 18 123/75 94 04/26/24 09:21 04/26/24 09:21 04/26/24 09:21 04/26/24 09:21 04/26/24 09:21 Pain Score Most Recent Pain Score: Most Recent Pain Score Pain Level 0 04/26/24 09:21 Assessment Mental Status: Awake (Alert & Oriented to Patient Baseline) Airway and Respiratory Function: Patent airway with normal (patient baseline) respiratory exam Cardiovascular Function: Hemodynamically Stable Hydration Status: Adequately Hydrated Nausea & Vomiting: No Nausea or Vomiting Pain: Pt. Denies Any Pain Peripheral Nerve Block: Patient did not receive a nerve block
[2024-04-26 09:50] VITALS: BP 132/85; PULSE 67; RESP 16; TEMP 36.4; O2SAT 93
== END 2024-04-26 10:10 | disposition home or self-care (01) ==
LOC: SUR 06:49
PROVIDERS: PCP Nurse Practitioner; Visit Provider Surgery
PROC: 0DJ68ZZ Inspection of Stomach, Via Natural or Artificial Opening Endoscopic (ICD-10-PCS; CPT 43235; principal; 2024-04-26 08:15)
DX: K21.9 Gastro-esophageal reflux disease without esophagitis (principal); K22.89 Other specified disease of esophagus; K44.9 Diaphragmatic hernia without obstruction or gangrene; K31.89 Other diseases of stomach and duodenum; D13.2 Benign neoplasm of duodenum
CPT/HCPCS: 43239; 88305; J2003; J2704

== ENCOUNTER 2024-10-19 11:17 | Outpatient (CLI) | payer MEDICARE, SELFPAY ==
--- NOTE | 2024-10-19 10:30 | DI.US_ITS ---
Exam(s) US CAROTID EXAM: US CAROTID CLINICAL HISTORY: family h/o cva, dizziness, hypertension, h/o smoking,mixed hyperlipidemia,. TECHNIQUE: Ultrasound carotids performed using grayscale, color-flow, and spectral Doppler imaging. COMPARISON: No exams were available for comparison FINDINGS: RIGHT CAROTID ARTERY: Plaque: There is moderate plaque seen in the carotid bulb and proximal ICA. Velocity elevation: None. LEFT CAROTID ARTERY: Plaque: There is mild calcific plaque seen in the carotid bulb and proximal ICA. Velocity elevation: None. VERTEBRAL ARTERIES: Antegrade flow. Measurements: R Bulb: 69.8cm/s PS / 14.1cm/s ED R CCA: 63.4cm/s PS / 15.4cm/s ED R ECA: 73.6cm/s PS / 6.3cm/s ED R ICA Prox: 81cm/s PS / 20.5cm/s ED R ICA Mid: 101.6cm/s PS / 15.3cm/s ED R ICA Distal: 66.9cm/s PS /15.3cm/s ED R Vert: 64.2cm/s PS / 0cm/s ED R SVR: 1.6 R DVR: 1 L Bulb: 64.1cm/s PS / 19.1cm/s ED L CCA: 82.1cm/s PS / 21.7cm/s ED L ECA: 99.3cm/s PS / 11cm/s ED L ICA Prox: 49.6cm/s PS / 15.4cm/s ED L ICA Mid: 59.7cm/s PS / 18cm/s ED L ICA Distal: 106.9cm/s PS / 37.9cm/s ED L Vert: 59.9cm/s PS / 18.2cm/s ED L SVR: 1.3 L DVR: 1.7 IMPRESSION: No evidence for hemodynamically significant carotid stenosis. Criteria for Carotid Stenosis: Normal: ICA PSV <125 cm/s no plaque or intimal thickening is visible. <50% stenosis: ICA PSV <125 cm/s and plaque or intimal thickening is visible. 50-69% stenosis: ICA PSV is 125-250 cm/s and plaque is visible. >70% stenosis to near occlusion: ICA PSV >250 cm/s with visible plaque and luminal narrowing. DATA REPOSITORY:
== END 2024-10-19 11:37 ==
PROVIDERS: PCP Nurse Practitioner Family; Visit Provider Nurse Practitioner
DX: R42 Dizziness and giddiness (principal); E78.2 Mixed hyperlipidemia; I10 Essential (primary) hypertension; Z87.891 Personal history of nicotine dependence; Z82.3 Family history of stroke
CPT/HCPCS: 93880

== ENCOUNTER 2025-03-13 00:44 | Outpatient (CLI) | payer MEDICARE, SELFPAY ==
[2025-03-13 07:46] LABS: Microalb ug/mg Crea 15.6 ug/mg Cr
[2025-03-13 07:46] LABS: Hemoglobin A1C 5.8 % (<5.7)
[2025-03-13 07:47] LABS: Anion Gap 7.3 mmol/L (3-11); BUN 19 mg/dL (9-23); CO2 29.7 mmol/L (20.0-31.0); Calcium 9.4 mg/dL (8.3-10.6); Chloride 105 mmol/L (98-107); Cholesterol 274 mg/dL (<200); Glucose 103 mg/dL (74-106); HDL Cholesterol 45 mg/dL (>40); Potassium 4.4 mmol/L (3.5-5.1); Sodium 142 mmol/L (136-145)
== END 2025-03-13 00:45 | disposition home or self-care (01) ==
LOC: LBO 00:44
PROVIDERS: PCP Nurse Practitioner Family; Visit Provider Nurse Practitioner Family
DX: E78.2 Mixed hyperlipidemia (principal); R73.03 Prediabetes; I10 Essential (primary) hypertension
CPT/HCPCS: 36415; 80048; 80061; 82043; 82570; 83036

== ENCOUNTER → 2025-03-28 08:24 | Outpatient (CLI) | payer MEDICARE, SELFPAY ==
--- NOTE | 2025-03-28 06:30 | DI.US_ITS ---
APPROVED REPORT EXAM: Comprehensive 2D, Doppler, and color-flow Echocardiogram Patient Location: Out-Patient Nursing Education Consultant: Heidi Amato RDCS (AE) Indications: Heart murmur Other Information Study Quality: Adequate Conclusion Mild concentric left ventricular hypertrophy. Mild disproportionate upper septal thickening. EF is 60%. Wall motion is normal Normal right ventricular size and function Both atria are normal in size Aortic valve is sclerotic and trileaflet without stenosis or regurgitation Mild tricuspid regurgitation. Estimated right ventricular systolic pressure is 36 mmHg Mildly dilated ascending aorta Wall motion Left Ventricle The left ventricle is normal size. The left ventricular systolic function is normal. The left ventricular ejection fraction is within the normal range. Mild basal septal hypertrophy is present. Mild concentric left ventricular hypertrophy. There is normal LV segmental wall motion. There is no ventricular septal defect visualized. LVEF is 60%. Right Ventricle The right ventricle is normal size. The right ventricular systolic function is normal. Atria The left atrium size is normal. The right atrium size is normal. The interatrial septum is intact with no evidence for an atrial septal defect. Aortic Valve The Aortic valve is sclerotic. Aortic valve is trileaflet. There is no aortic valvular stenosis. No aortic regurgitation is present. Mitral Valve The mitral valve is normal in structure. No evidence of mitral valve stenosis. Trace to mild mitral regurgitation. Tricuspid Valve The tricuspid valve is normal in structure. There is no tricuspid valve stenosis. Mild tricuspid regurgitation. The RVSP is 36.5 mmHg. Pulmonic Valve The pulmonary valve is normal in structure. There is no pulmonic valvular stenosis. Trace pulmonic regurgitation. Great Vessels The aortic root is normal in size. The ascending aorta is mildly dilated. Aortic arch is not well visualized. IVC is normal in size and collapses >50% with inspiration. Pericardium Trace pericardial effusion. 2D Dimensions IVSD d PLAX 1.22 cm F: 0.6-1.0 Ao Root d 3.22 cm F: 2.7 - 3.3 LVPW d PLAX 1.21 cm F: 0.6 - 1.0 Ao Asc Diam d 3.63 cm F: 2.3 - 3.1 LVID d PLAX 4.50 cm F: 3.8 - 5.2 LVDs 3.06 cm F: 2.2 - 3.5 LV EF Teichholz 60.4 % FS 32.08 % LV EDV (Teich) 92.7 mL LV ESV (Teich) 36.7 mL M-Mode TAPSE 2.33 cm (M/F) >1.7 Auto EF LV EDV A4C 78.2 mL LV EDV A2C 66.9 mL LV EDV BP 73.4 mL LV ESV A4C 31.7 mL LV ESV A2C 26.8 mL LV ESV BP 29.3 mL LVEF(%) A4C 59.5 % LVEF(%) A2C 60.0 % LVEF(%) BP 60.1 % LV SV A4C 46.5 ml LV SV A2C 40.1 ml LV SV BP 44.1 ml LV CO A4C 3.7 L/min LV CO A2C 3.2 L/min LV CO BP 3.4 L/min HR A4C 78.95 BPM HR A2C 80.00 BPM LV EDV Index (BP) LA Volume LA Length A4C 5.3 cm LA Length A2C 4.9 cm LA Area A4C s 20.85 cm2 LA Area A2C s 14.53 cm2 LA Vol A4C A-L 69.50 mL LA Vol A2C A-L 36.40 mL LA Vol Biplane A-L 52.2 mL LA Vol/BSA A4C A-L LA Vol/BSA A2C A-L LA Vol/BSA BP A-L 31.5 mL/m2 LA Vol A4C MOD 65.2 mL LA Vol A2C MOD 33.5 mL LA Vol BP MOD 48.1 mL RA Volume RA Area A4C 12.6 cm2 RA ESV A4C (A-L) 27.4mL RA Vol/BSA A4C A-L RA Length A4C 4.9 cm RA ESV A4C (MOD) 24.9mL LV Diastology MV E' medial 0.045 (>0.07 m/s) MV E Vmax 0.66 (0.4-1.3 m/s) MV E/E' MED 14.72 (<14) MV A Vmax 0.95 (0.4-1.3 m/s) MV E' lateral 0.039 (>0.1 m/s) E/A Ratio 0.7 MV E/E' LAT 16.73 (<14) MV E' Average 0.042 m/s MV E/E'(average) 15.66 Aortic Valve AoV Vmax 1.65 m/s LVOT Vmax 0.99 m/s AoV Peak Grad 10.9 mmHg LVOT Peak Grad 3.9 mmHg AoV Area (Vmax) 1.95 cm2 LVOT VTI 0.247 m AoV VTI 0.373 m LVOT Mean Grad 1.8 mmHg AoV Mean Lino. 1.18 m/s LVOT SV 80.35 mL AoV Mean Grad 6.3 mmHg LVOT Diam s 2.00 cm AoV Area (VTI) 2.15 cm2 AV Regurg Peak Gr. 10.92 mmHg Velocity Ratio 0.60 Mitral Valve MV DT 263 (160-240 msec) MV Vmax TIPS 0.93 m/s MV Mean Grad 1.8 (<2mmHg) MV VTI 0.207 m Pulmonary Valve PV Vmax 1.13 (0.5-1.5 m/s) RVOT Vmax 0.71 m/s PV Peak Grad 5.1 mmHg RVOT Peak Gr. 2.0 mmHg PV Mean Lino 0.71 m/s RVOT VTI 0.140 m PV Mean Grad 2.3 mmHg RVOT Mean Gr. 1.0 mmHg Tricuspid Valve RA Pressure 3.00 mmHg TR Vmax 2.89 m/s TV S' 0.15 m/s TR Peak Grad 33.4 mmHg RVSP (TR) 36.5 mmHg
== END ==
LOC: DI 08:24
PROVIDERS: PCP Nurse Practitioner Family; Visit Provider Nurse Practitioner Family
DX: R01.1 Cardiac murmur, unspecified (principal); I51.7 Cardiomegaly
CPT/HCPCS: 93306